=== PATIENT | female | born 1965 | race Caucasian/White ===

== ENCOUNTER 2024-04-16 13:59 | Outpatient (CLI) | payer OTHER, SELFPAY ==
--- NOTE | 2024-04-16 14:16 | ECG_ITS ---
SEE SCANNED COPY FOR CONFIRMED REPORT MTDD
[2024-04-16 14:21] LABS: Basophils Absolute Auto 0.07 K/mm3 (0.00-0.10); Basophils Percent Auto 1.3 % (0.0-1.0); Eosinophils Absolute Auto 0.19 K/mm3 (0.02-0.50); Eosinophils Percent Auto 3.6 % (1.0-6.0); Hematocrit 42.6 % (35.0-49.0); Hemoglobin 13.9 g/dL (12.0-15.0); Immature Granulocyte Absolute 0.02 K/mm3 (0.00-0.00); Immature Granulocyte Percent A 0.4 % (0.0-0.0); Lymphocytes Absolute Auto 1.82 K/mm3 (1.10-4.50); Lymphocytes Percent Auto 34.9 % (18.0-42.0); Mean Corpuscular HGB Conc 32.6 g/dL (32-36); Mean Corpuscular Hemoglobin 29.2 pg (27.0-31.0); Mean Corpuscular Volume 89.5 fL (78.0-102.0); Mean Platelet Volume 9.2 fl (9.2-11.8); Monocytes Absolute Auto 0.53 K/mm3 (0.10-0.90); Monocytes Percent Auto 10.2 % (2.0-11.0); Neutrophils Absolute Auto 2.58 K/mm3 (1.70-7.20); Neutrophils Percent Auto 49.6 % (50.0-70.0); Platelet Count Result 277 K/mm3 (150-420); Red Blood Count 4.76 M/mm3 (4.20-5.40); Red Cell Distribution Width 12.2 % (11.6-14.4); White Blood Count 5.2 K/mm3 (4.8-10.8)
[2024-04-16 14:33] LABS: Hemoglobin A1C 5.4 % (<5.7)
[2024-04-16 15:19] LABS: Alanine Aminotransferase 33 U/L (14-59); Albumin Level 3.8 g/dL (3.4-5.0); Alkaline Phosphatase 107 U/L (46-116); Anion Gap 8 mmol/L (4-12); Aspartate Amino Transferase 21 U/L (15-37); Bilirubin,Total 0.2 mg/dL (0.00-1.00); Blood Urea Nitrogen 7 mg/dL (7-18); Calcium 9.5 mg/dL (8.5-10.1); Carbon Dioxide 29 mmol/L (21-32); Chloride 97 mmol/L (98-108); Cholesterol 220 mg/dL (0-200); Estimated Glomerular Filt Rate > 60; Glucose 97 mg/dL (70-99); HDL Direct 53 mg/dL (40-60); LDL Cholesterol Calculated 99 mg/dL (<130); Osmolality Calculated 276 mOsm/kg (285-295); Potassium 4.3 mmol/L (3.5-5.1); Sodium 134 mmol/L (136-145); Thyroid Stimulating Hormone 4.46 uIU/mL (0.36-3.74); Total Protein 7.1 g/dL (6.4-8.2); Triglycerides 339 mg/dL (0-150)
[2024-04-16 15:26] LABS: Vitamin B12 > 2000 pg/mL (193-986)
[2024-04-18 06:03] LABS: Vitamin D 25 Hydroxy 92 ng/mL (30-100)
== END 2024-04-16 14:00 | disposition home or self-care (01) ==
LOC: CHSLAB 14:02
PROVIDERS: PCP Nurse Practitioner Family; Visit Provider Nurse Practitioner Family
DX: Z00.00 Encounter for general adult medical examination without abnormal findings (principal); Z78.9 Other specified health status; I49.9 Cardiac arrhythmia, unspecified; Z68.35 Body mass index [BMI] 35.0-35.9, adult
CPT/HCPCS: 36415; 80053; 80061; 82306; 82607; 83036; 84443; 85025; 93005

== ENCOUNTER 2024-05-17 07:42 | Outpatient (CLI) | payer OTHER, SELFPAY ==
--- NOTE | 2024-05-17 07:46 | EST_ITS ---
Patient Info Name: ANDERSON KOO Age: 59 years : 1965 Gender: Female Ht: 61 in Wt: 185 lbs BSA: 1.94 m2 HR: 88 bpm BP: 102 / 58 mmHg Heart Rhythm: IVCD Technical Quality: Good Exam Date: 05/17/2024 8:43 AM Exam Location: Echo Lab Patient Status: Outpatient Admit Date: 05/17/2024 Staff Ordering Physician: Nusrat Gray APRN Attending Provider: Nusrat Gray APRN Exam Type: CA stress maurice w NM Study Info A regadenoson stress test was performed. Summary 1. 1. Inconclusive lexiscan stress test for ischemic ST change by ECG criteria due to baseline LBBB. 2. 2. Stable hemodynamics throughout the test. 3. 3. Nuclear scan to follow and will be reported separately. Please correlate with it. Protocol: LEXISCAN Stress ECG Details Stage: REST Duration (min): 22 min : 20 sec HR (bpm): 88 SBP (mmHg): 102 DBP (mmHg): 58 Stage: REST Duration (min): 29 min : 50 sec HR (bpm): 81 SBP (mmHg): 102 DBP (mmHg): 58 Stage: STAGE 1 Duration (min): 0 min : 24 sec HR (bpm): 81 SBP (mmHg): 102 DBP (mmHg): 58 Stage: RECOVERY Duration (min): 0 min : 35 sec HR (bpm): 91 SBP (mmHg): 102 DBP (mmHg): 58 Stage: RECOVERY Duration (min): 1 min : 35 sec HR (bpm): 96 SBP (mmHg): 102 DBP (mmHg): 58 Stage: RECOVERY Duration (min): 2 min : 35 sec HR (bpm): 92 SBP (mmHg): 94 DBP (mmHg): 67 Stage: RECOVERY Duration (min): 3 min : 35 sec HR (bpm): 95 SBP (mmHg): 105 DBP (mmHg): 66 Stage: RECOVERY Duration (min): 4 min : 19 sec HR (bpm): 91 SBP (mmHg): 105 DBP (mmHg): 66 Rest HR: 81 bpm Peak HR: 99 bpm Rest Sys BP: 102 mmHg Peak Sys BP: 105 mmHg Max Pred HR: 161 bpm % Max Pred HR: 61 % Target HR: 137 bpm Max RPP: 10,395 bpm*mmHg BP Response: Normal blood pressure response Termination Reason: Completed Protocol Cardiac Symptoms: None Total Time: 0 min : 24 sec Rest White BP: 58 mmHg Peak White BP: 66 mmHg Total Dose: 0.4 mg Resting ECG Sinus rhythm with IVCD/left bundle branch block. Stress ECG No abnormal ST/T wave changes. Arrhythmias No arrhythmias were observed during the examination. Report Signatures
--- NOTE | 2024-05-17 13:29 | WPDCARIOSTRE ---
Nuclear Stress Test INDICATIONS Indications: LBBB PROCEDURE Procedure Performed: Myocardial Perf Spect-Multi Procedure: Patient underwent a lexiscan stress test and immediately was injected with 32.8 mCi of cardiolyte. Multiple tomographic images are obtained. These are of good quality. There is a large size, severe anterior, septal, and apical perfusion defects with stress imaging. A separate resting images were obtained after patient was injected with 10.6 mCi of cardiolyte. Multiple tomographic images are obtained. These are of good quality. There is a large size, severe anterior, septal, and apical perfusion defects with rest imaging. CONCLUSION Conclusion: 1. Myocardial perfusion imaging demonstrating a fixed large size anterior, septal and apical perfusion defects suggestive of scar. 2. No evidence of reversible ischemia. 3. Left ventriculogram demonstrates septal and apical hypokinesis with measured ejection fraction of 51%. 4. TID score 1.23 is borderline abnormal which cannot r/o left main or triple vessel disease.
== END 2024-05-17 07:43 | disposition home or self-care (01) ==
LOC: CHSIMG 07:43
PROVIDERS: PCP Nurse Practitioner Family; Visit Provider Nurse Practitioner Family
DX: I49.9 Cardiac arrhythmia, unspecified (principal); I44.7 Left bundle-branch block, unspecified
CPT/HCPCS: 78452; 93017; A9502; J2785

== ENCOUNTER 2024-06-10 15:41 | Outpatient (CLI) | payer OTHER, SELFPAY ==
--- NOTE | ~2024-06-10 | CT_ITS ---
CT Scan of the Chest without Contrast: Clinical Indication: Lung cancer screening, nicotine dependence Technique: Contiguous sections were acquired throughout the chest without intravenous contrast. Dose reduction technique was used on this scan by utilizing automated exposure control and iterative recon struction technique. The dose-length product (DLP) was 104.88 mGy-cm. Findings: There is no evidence of any significant mediastinal, hilar or axillary lymphadenopathy. The mediastin al soft tissues appear normal. There is no evidence of pleural or pericardial effusion. The lungs are clear. No pulmonary nodules or infiltrates are noted. Images through the upper abdomen reveal no abnormalities. Impression: Lung RADS 1: Negative. 12 month follow-up screening CT advised. Reviewed, dictated and finalized at location . Impression: Lung RADS 1: Negative. 12 month follow-up screening CT advised.
--- NOTE | 2024-06-10 15:44 | ECHO_ITS ---
Patient Info Name: ANDERSON KOO Age: 59 years : 1965 Gender: Female Ht: 61 in Wt: 185 lbs BSA: 1.94 m2 HR: 84 bpm BP: 132 / 87 mmHg Technical Quality: Fair Exam Date: 06/10/2024 4:04 PM Exam Location: [facility] Patient Status: Outpatient Admit Date: 06/10/2024 Staff Ordering Physician: Nusrat Gray APRN It Engineer: Warren Meyer RDCS Attending Provider: Nusrat Gray APRN Exam Type: CA echo doppler color flow Study Info Indications I49.9 - Cardiac arrhythmia, unspecified Complete two-dimensional, color flow and Doppler transthoracic echocardiogram is performed. Summary 1. Complete two-dimensional, color flow and Doppler transthoracic echocardiogram is performed. 2. Left ventricular chamber dimension is normal. 3. Left ventricular systolic function is normal, estimated at 55-60%. 4. Left ventricular septal wall motion is abnormal with septal motion related to bundle branch block. 5. The left ventricular diastolic function is grade I diastolic dysfunction. 6. E/e' 11 is mildly elevated. 7. No pulmonary hypertension, estimated pulmonary arterial systolic pressure is 14 mmHg. Left Ventricle E/e' 11 is mildly elevated. Left ventricular chamber dimension is normal. Left ventricular systolic function is normal, estimated at 55-60%. Left ventricular septal wall motion is abnormal with septal motion related to bundle branch block. The left ventricular diastolic function is grade I diastolic dysfunction. Right Ventricle Right ventricular systolic function is normal and with normal TAPSE 2.3 cm. Right ventricular chamber dimension is normal. Left Atria Left atrial chamber dimension is normal. Right Atria Right atrial chamber dimension is normal. Aortic Valve The aortic valve is trileaflet. There is no aortic valve stenosis. There is no aortic valve regurgitation. Pulmonic Valve There is no pulmonic regurgitation. Mitral Valve There is no mitral valve stenosis. There is no mitral valve regurgitation. Tricuspid Valve There is no tricuspid valve regurgitation. No pulmonary hypertension, estimated pulmonary arterial systolic pressure is 14 mmHg. Pericardium/Pleural There is no pericardial effusion. Inferior Vena Cava Normal inferior vena cava with >50% collapse upon inspiration consistent with normal right atrial pressure, 5 mmHg. Aorta The aortic root size at the sinus of Valsalva is normal. Left Ventricular Outflow Tract Name Value Normal LVOT 2D LVOT Diameter 1.8 cm LVOT Doppler LVOT Peak Velocity 97 cm/s LVOT Peak Gradient 4 mmHg LVOT Mean Gradient 2 mmHg LVOT VTI 18 cm LVOT VTI/AV VTI Ratio 0.9 LVOT Stroke Volume 49 ml Pulmonic Valve Name Value Normal PV Doppler PV Peak Velocity 89 cm/s PV Peak Gradient
== END 2024-06-10 15:42 | disposition home or self-care (01) ==
LOC: CHSIMG 15:41
PROVIDERS: PCP Nurse Practitioner Family; Visit Provider Nurse Practitioner Family
DX: I49.9 Cardiac arrhythmia, unspecified (principal); Z87.891 Personal history of nicotine dependence; I44.7 Left bundle-branch block, unspecified
CPT/HCPCS: 71271; 93306

== ENCOUNTER 2024-07-12 12:32 | Outpatient (CLI) | payer OTHER, SELFPAY ==
--- NOTE | ~2024-07-12 | XR_ITS ---
EXAM: XR shoulder LT min 2V DATE: 07/12/2024 13:09 HISTORY: Pain in arm radiates X 3-4 months, NKI . COMPARISON: None available. FINDINGS: Normal mineralization. No fracture or dislocation. No lytic or blastic lesion. Mild degene rative change at the AC joint and glenohumeral joint. Degenerative subchondral cysts in the superolat eral humeral head. Superior humeral head migration and several views. No erosion or periosteal change . Soft tissues within normal limits. IMPRESSION: Mild polyarticular left shoulder osteoarthritis. Likely rotator cuff pathology. Reviewed, dictated and finalized at location K. IMPRESSION: Mild polyarticular left shoulder osteoarthritis. Likely rotator cuf f pathology.
--- NOTE | ~2024-07-12 | XR_ITS ---
EXAM: [id number]_[id number]_[id number] DATE: 07/12/2024 13:10 HISTORY: Pain in arm radiates X 3-4 months, NKI . COMPARISON: None available. FINDINGS: Craniocervical association and atlantoaxial joint are aligned. No prevertebral soft tissue swelling. Vertebral bodies are aligned. Mild cervical straightening. Vertebral body heights are main tained. Normal disc spaces. Moderate degenerative change at the atlantodental interval. Multilevel mi ld disc space narrowing and moderate marginal osteophytosis. Multilevel moderate facet and uncoverteb ral joint hypertrophy. IMPRESSION: Multilevel moderate degenerative disc disease and facet/uncovertebral joint arthropathy. Reviewed, dictated and finalized at location K. IMPRESSION: Multilevel moderate degenerative disc disease and facet/uncovertebr al joint arthropathy.
[2024-07-12 13:52] LABS: Thyroid Stimulating Hormone 2.72 uIU/mL (0.36-3.74)
== END 2024-07-12 12:33 | disposition home or self-care (01) ==
PROVIDERS: PCP Nurse Practitioner Family; Visit Provider Nurse Practitioner Family
DX: E03.8 Other specified hypothyroidism (principal); M79.602 Pain in left arm; M50.30 Other cervical disc degeneration, unspecified cervical region; M19.012 Primary osteoarthritis, left shoulder
CPT/HCPCS: 36415; 72040; 73030; 84443

== ENCOUNTER 2024-07-23 13:54 | Outpatient (RCR) | payer OTHER, SELFPAY ==
--- NOTE | 2024-07-28 08:34 | BUOTOPEVAL ---
Assessment and note entered by Joan Martinez OT Evaluation Information Assessment Status Evaluation Diagnosis Pain in left arm Other ICD-10 Condition Codes ( Polyarthritis, unspecified OT) Onset 3 weeks Reported Pain Level Pain Score 0: Self Report Assessment OT Clinical Summary The patient is a 59 year old female who was referred to outpatient OT due to polyarthritis and pain in L arm. The patient previously had no pain and WNL UE strength that resulted in her ability to lift heavy items for ADLs and perform work tasks without discomfort. The patient now demonstrates significant pain in L UE reporting 7/ 10 at worst, scoring 25% on QuickDASH questionnaire, and demonstrates 4-/5 shoulder strength, 4/5 elbow strength that results in pain during MMT. The patient demonstrates moderate dysfunction of L UE that affects her ability to perform daily work tasks without discomfort. Therapist to educate patient on workplace ergonomics, UE HEP, address pain symptoms and improve strength within pain free range for increased independence with ADLs with minimal pain . Plan of Care Interventions Therapeutic Exercise,Manual Therapy,Neuro Re- education,Therapeutic Activities,Hot Pack/Cold Pack,Electrical Stimulation,Self-Care/Home Management,Ultrasound Treatment Frequency and 2x/week for 10 visits. Duration These treatments will address the objective and functional deficits as defined above. The patient will be advanced safely and appropriately in order for the patient to progress towards his/her prior level of function. Additional exercises will be introduced and as well as a comprehensive home exercise program upon discharge, if needed, ?to ensure carryover of functional gains achieved in the clinic. This treatment plan has been reviewed and agreement upon by the patient.
== END 2024-08-03 20:00 | disposition home or self-care (01) ==
LOC: CHSOT 13:54
PROVIDERS: Visit Provider Nurse Practitioner Family
DX: M79.602 Pain in left arm (principal); M13.0 Polyarthritis, unspecified
CPT/HCPCS: 97110; 97140; 97165

== ENCOUNTER 2024-12-23 07:10 | Emergency (ER) | payer OTHER, SELFPAY ==
--- NOTE | ~2024-12-23 | XR_ITS ---
XR elbow RT min 3V 12/23/2024 07:37 INDICATION: Elbow pain after fall PROCEDURE: 5 views right elbow. COMPARISON: No prior studies for comparison. FINDINGS: Fracture, dislocation or subluxation is not identified. Moderate soft tissue swelling overl jason the proximal radius and ulna seen on the lateral view. No foreign bodies are identified. IMPRESSION: 1: NO ACUTE BONE OR JOINT ABNORMALITY IDENTIFIED. Reviewed, dictated and finalized at location A. GER PAYER
--- NOTE | ~2024-12-23 | CT_ITS ---
EXAMINATION: CT cervical spine wo con DATE: 12/23/2024 07:29 INDICATION: Neck pain after trauma TECHNIQUE: Computed tomography (CT) of the cervical spine was performed without intravenous contrast. The dose-length product was 461 mGy-cm. Automated exposure control and iterative reconstruction tech nique were employed. COMPARISON: None FINDINGS: Reversal of cervical lordosis. Craniovertebral junction is normal. There is advanced multil evel spondylosis throughout the cervical spine characterized by disc narrowing and endplate hypertrop hy. No acute fracture or traumatic malalignment. No evidence for perched facet. Odontoid process is n ormal. No abnormality of the craniovertebral junction. No paraspinal or prevertebral soft tissue abno rmality. Lung apices are unremarkable. IMPRESSION: 1. No acute abnormality of the cervical spine. Reviewed, dictated and finalized at location A. F COINS INSPECTOR
--- NOTE | ~2024-12-23 | CT_ITS ---
EXAMINATION: CT BRAIN W/O DATE: 12/23/2024 07:29 INDICATION: Trauma to the head. TECHNIQUE: Computed tomography (CT) of the head was performed without intravenous contrast. The dose- length product was 605.33 mGy-cm. Automated exposure control and iterative reconstruction technique w ere employed. COMPARISON: No prior studies for comparison. FINDINGS: Normal brain parenchymal volume for age. Normal stone-white differentiation. No acute intrac ranial hemorrhage, infarction, mass or mass effect. There are scattered mild periventricular and subc ortical white matter changes, most likely related to small vessel ischemic disease (microangiopathy). No ventriculomegaly or midline shift. Midline sagittal images demonstrate a normal corpus callosum, c raniovertebral junction and sella turcica. Basilar cisterns are patent. Paranasal sinuses and mastoids are pneumatized. No depressed skull fractures. IMPRESSION: 1. No acute intracranial abnormality. Reviewed, dictated and finalized at location A. CLINICAL REVIEW
--- OUTSIDE RECORDS SUMMARY | 2024-12-23 07:12 | XMS_ITS ---
Author Organization [facility] [employer] [facility] Address [facility] [place] [address] Care Team Providers Care [employer] Product Consultant Name Role Phone Mimi, Gustabo Unavailable [phone] REASON FOR VISIT New Refill Request Medications Medication SIG (Take, Route, Frequency, Duration) Notes Start Date End Date Status Venlafaxine HCl ER 150 MG 2 capsule Oral once a day for 90 days Active Venlafaxine HCl ER 75 MG 1 capsule in th e morning Orally Once a day for 90 days Active Social History Sex Assigned At : Social History Observation Description Sex Assigned At Female Encounters Encounter Location Date Provider Diagnosis [facility] [facility] [address] [facility] [address] [place] [address] 12/15/2024 Gustabo Le Major depressive disorder, recurrent severe without psychotic features F33.2 Assessments Encounter Date Diagnosis (ICD Code) Assessment Notes Treatment Notes Treatment Clinical Notes Section Notes 12/15/2024 Major depressive disorder, recurrent severe without psychotic features (ICD-10 - F33.2) Plan Of Treatment Medication Medication Name Sig Start Date Stop Date Notes Venlafaxine HCl ER 150 MG 2 capsule Oral once a day for 90 days Venlafaxine HCl ER 75 MG 1 capsule in th e morning Orally Once a day for 90 days Next Appt Details Provider Name:Gustabo Le , 01/07/2025 03:45:00 PM, [address], [address], [place], [address], Progress Notes * ANDERSON KOO LDOB: [birth year] (59 yo F)Acc No.[id number]:12/15/2024 Patient:?ANDERSON KOO :1965???Age:59 Y???Sex:Female Address:[address] [address] * Refills? Refill Venlafaxine HCl ER Capsule Extended Release 24 Hour, 150 MG, Oral, 180 Capsule, 2 capsule, once a day, 90 days, Refills=1 Refill Venlafaxine HCl ER Capsule Extended Release 24 Hour, 75 MG, Orally, 90 Capsule, 1 capsule in the morning, Once a day, 90 days, Refills=1 * true * Date:? 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
--- OUTSIDE RECORDS SUMMARY | 2024-12-23 07:12 | XMS_ITS ---
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 Name Role Phone Gustabo Horowitz Unavailable [phone] Allergies No Known Allergies REASON FOR VISIT follow up Medications Medication SIG (Take, Route, Frequency, Duration) Notes Start Date End Date Status Venlafaxine HCl ER 150 MG 2 capsule Oral once a day for 90 days 03/31/2024 Active Venlafaxine HCl ER 75 MG 1 capsule in th e morning Orally Once a day for 90 days 06/10/2024 Active Venlafaxine HCl 75 MG Oral 03/31/2024 Active Levothyroxine Sodium 50 MCG Oral for 30 Days Active Social History Sex Assigned At : Social History Observation Description Sex Assigned At Female Problems Problem Type SNOMED Code ICD Code Onset Dates Problem Status W/U Status Risk Notes Problem Severe recurrent major depression without psychotic features (88755988) Major depressive disorder, recurrent severe without psychotic features (F33.2) Active confirmed Problem Generalized anxiety disorder (51057854) Generalized anxiety disorder (F41.1) Active confirmed Vital Signs Blood pressure systolic 119 mm Hg 04/30/20 24 Blood pressure diastolic 78 mm Hg 024 Heart Rate 102 /min 04/30/2024 Height 61.00 in 04/30/2024 Weight 189.0 lbs 04/30/2024 BMI 35.71 kg/m2 04/30/2024 Height-cm 154.94 cm 04/30/2024 Weight-kg 85.73 kg 04/30/2024 Encounters Encounter Location Date Provider Diagnosis [facility] [employer] [facility] [address] [place] [address] 04/30/2024 Gustabo Horowitz Major depressive disorder, recurrent severe without psychotic features F33.2 and Generalized anxiety disorder F41.1 Assessments Encounter Date Diagnosis (ICD Code) Assessment Notes Treatment Notes Treatment Clinical Notes Section Notes 04/30/2024 Major depressive disorder, recurrent severe without psychotic features (ICD-10 - F33.2) Hypothyroidism - Plan: - Continue Levothyroxine 50 mg daily for thyroid hormone replacement. Depression - Assessment: Patient reports discontinuation of Wellbutrin due to side effects (forgetfulness, absent-mindedness, headaches). - Plan: - Continue current regimen of Duloxetine 375 mg daily (Venlafaxine ER 150 mg, two capsules once daily, and Venlafaxine ER 75 mg, one capsule once daily). - Monitor patient's response to the current medication regimen and adjust as needed. Medication Refills - Assessment: Patient unsure about the need for refills. - Plan: - Advised the pharmacy to contact the provider if necessary. - Ensure the preferred storage and backup administrator (AUB) is specified for the generic Venlafaxine ER. Lifestyle Modification - Assessment: Patient reports improvement in mood after replacing sugar with honey in coffee. - Plan: - Encourage continuation of this dietary change and monitor for any further improvements in mood. Follow-up - Plan: - Schedule a follow-up appointment to assess the patient's response to the current medication regimen and make any necessary adjustments. 04/30/2024 Generalized anxiety disorder (ICD-10 - F41.1) Hypothyroidism - Plan: - Continue Levothyroxine 50 mg daily for thyroid hormone replacement. Depression - Assessment: Patient reports discontinuation of Wellbutrin due to side effects (forgetfulness, absent-mindedness, headaches). - Plan: - Continue current regimen of Duloxetine 375 mg daily (Venlafaxine ER 150 mg, two capsules once daily, and Venlafaxine ER 75 mg, one capsule once daily). - Monitor patient's response to the current medication regimen and adjust as needed. Medication Refills - Assessment: Patient unsure about the need for refills. - Plan: - Advised the pharmacy to contact the provider if necessary. - Ensure the preferred storage and backup administrator (AUB) is specified for the generic Venlafaxine ER. Lifestyle Modification - Assessment: Patient reports improvement in mood after replacing sugar with honey in coffee. - Plan: - Encourage continuation of this dietary change and monitor for any further improvements in mood. Follow-up - Plan: - Schedule a follow-up appointment to assess the patient's response to the current medication regimen and make any necessary adjustments. Plan Of Treatment Medication Medication Name Sig Start Date Stop Date Notes Venlafaxine HCl ER 150 MG 2 capsule Oral once a day for 90 days 03/31/2024 Venlafaxine HCl ER 75 MG 1 capsule in th e morning Orally Once a day for 90 days 06/10/2024 Next Appt Details Follow Up: 2 Months, Reason: Provider Name:Gustabo Horowitz , 01/07/2025 03:45:00 PM, [address], [facility] [address], [place], [address], Progress Notes * ANDERSON KOO LDOB: [birth year] (59 yo F)Acc No.[id number]:04/30/2024 Patient:?ANDERSON KOO Provider:?GUSTABO HOROWITZ MD :1965???Age:59 Y???Sex:Female D ate:04/30/2024 Address:[address] Subjective: * Chief Complaints: * ???Follow up * HPI: ???Depression screening:?PHQ-9?Little interest or pleasure in doing things?Not at all,?Feeling down, depressed, or hopeless?Not at all,?Trouble falling or staying asleep, or sleeping too much?Several days,?Feeling tired or having little energy?Not at all,?Poor appetite or overeating?Several days,?Feeling bad about yourself or that you are a failure, or have let yourself or your family down?Several days,?Trouble concentrating on things, such as reading the newspaper or watching television?Not at all,?Moving or speaking so slowly that other people could have noticed; or the opposite, being so fidgety or restless that you have been moving around a lot more than usual?Not at all,?Thoughts that you would be better off or of hurting yourself in some way?Not at all,?Total Score?3,?Interpretation?Minimal Depression.? Chief Complaint: The patient reports an overall positive state since the last visit, with no significant concerns or issues. She mentions that a previously discussed nasal spray was not initiated, as her condition has been stable without it. Medication History and Current Regimen: The patient had previously tried Wellbutrin but discontinued due to adverse effects such as forgetfulness, absent-mindedness, and headaches. Currently, she is taking a total of 375 milligrams of duloxetine, comprising two 150 mg capsules and one 75 mg capsule of venlafaxine. The patient is not taking Wellbutrin at this time and is uncertain about the need for refills. Dietary Changes and Potential Impact: The patient has made a dietary modification by replacing sugar with honey in her coffee, which she believes has contributed to an improvement in her mood. Inquiries and Concerns: The patient expresses curiosity about whether the brief period of taking Wellbutrin could have had a lasting effect on her brain's ability to produce serotonin. She is unsure if she requires a refill of the 75 mg venlafaxine capsules and suggests that the pharmacy can contact the provider if necessary. Additionally, the patient requests that the specific storage and backup administrator, A-U-B, be noted on her prescription, as she has had negative experiences with the Epic brand of generic medication. ???DAJA-7 Anxiety:?Over the last two weeks, how often have you been bothered by the following problems??1. Feeling nervous, anxious, or on edge?0 Not at all.? * Medical History:? * Surgical History:?Removal of gallbladder (81038) 11/24/2002 * Hospitalization/Major Diagno stic Procedure:?No Hospitalization History. * Family History:?Unspecified Relation: Bipolar disorder .?Father: No current problems or disability .?Mother: No current problems or disability .?Brother: Alcohol abuse .? * Social History:?Migrated Social History:?Migrated Social History: Alcohol Intake: None 04/06/2021,Tobacco Years: Current every day smoker 04/06/2021. * Medications:?TakingVenlafaxi ne HCl ER 150 MG Capsule Extended Release 24 Hour Oral Venlafaxine HCl 75 MG Tablet Oral Levothyroxine Sodium 50 MCG Tablet Oral Taking Venlafaxine HCl ER 150 MG Capsule Extended Release 24 Hour Oral Taking Venlafaxine HCl 75 MG Tablet Oral Taking Levothyroxine Sodium 50 MCG Tablet Oral DiscontinuedVenlafaxine HCl ER 150 MG Capsule Extended Release 24 Hour Oral Venlafaxine HCl ER 75 MG Capsule Extended Release 24 Hour Oral buPROPion HCl ER (XL) 300 MG Tablet Extended Release 24 Hour Oral buPROPion HCl ER (XL) 300 MG Tablet Extended Release 24 Hour TAKE 1 TABLET BY MOUTH EVERY DAY IN THE MORNING Oral buPROPion HCl ER (XL) 150 MG Tablet Extended Release 24 Hour TAKE 1 TABLET BY MOUTH EVERY DAY Oral buPROPion HCl ER (XL) 150 MG Tablet Extended Release 24 Hour Oral Amoxicillin-Pot Clavulanate 875-125 MG Tablet TAKE 1 TABLET BY MOUTH EVERY 12 HOURS WITH A MEAL UNTIL ALL TAKEN Oral Venlafaxine HCl ER 75 MG Capsule Extended Release 24 Hour Oral Carvedilol 6.25 MG Tablet Oral Medication List reviewed and reconciled with the patientDiscontinued Venlafaxine HCl ER 150 MG Capsule Extended Release 24 Hour Oral Discontinued Venlafaxine HCl ER 75 MG Capsule Extended Release 24 Hour Oral Discontinued buPROPion HCl ER (XL) 300 MG Tablet Extended Release 24 Hour Oral Discontinued buPROPion HCl ER (XL) 300 MG Tablet Extended Release 24 Hour TAKE 1 TABLET BY MOUTH EVERY DAY IN THE MORNING Oral Discontinued buPROPion HCl ER (XL) 150 MG Tablet Extended Release 24 Hour TAKE 1 TABLET BY MOUTH EVERY DAY Oral Discontinued buPROPion HCl ER (XL) 150 MG Tablet Extended Release 24 Hour Oral Discontinued Amoxicillin-Pot Clavulanate 875-125 MG Tablet TAKE 1 TABLET BY MOUTH EVERY 12 HOURS WITH A MEAL UNTIL ALL TAKEN Oral Discontinued Venlafaxine HCl ER 75 MG Capsule Extended Release 24 Hour Oral Discontinued Carvedilol 6.25 MG Tablet Oral Medication List reviewed and reconciled with the patient * Allergies:?N.K.D.A.no[Allerg ies Verified] Objective: * Vitals:?BP:119/78mm Hg, HR:1 02/min, Wt:189.0lbs, Wt-k.73 kg, Ht: 61.00 in, Ht-cm: 154.94 cm, BMI:35.71Index, Body Surface Area: 1.92. * Examination: ???Psychiatry: ?Appearance:?well-groomed.?Abnormal body movements:?none.?Affect / mood:?appropriate, full range.?Attention:?good.?Attitude:?cooperative.?Homicidal ideation:?none.?Suicidal ideation:?none.?Memory status:?did not assess.?Degree of awareness of surroundings:?within normal limits.?Delusions:?no.?Hallucinations:?no.?Impulse control:?not assessed.?Insight:?good.?Intellectual functioning:?average.?Calculation - Intellectual function:?not tested.?Literacy - Intellectual function:?not tested.?Comprehension - Intellectual function:?average.?Abstract / proverb - Intellectual function:?not tested.?Similarities / opposites - Intellectual function:?not tested.?Judgement:?not assessed.?Orientation:?awake, alert and oriented x 3.?Perceptual disorders:?no perceptual disorder noted.?Psychomotor activity:?within normal range.?Speech / language:?appropriate pitch/modulation.?Thought content:?appropriate.?Thought process:?intact.?Mini Mental Status Exam: ???Mental Status Examination: Patient reported feeling generally good. Described experiencing forgetfulness, absent-mindedness, and headaches while on Wellbutrin, which has since been discontinued. No current complaints of cognitive or mood disturbances were noted during this visit. Assessment: * Assessment: 1.?Major depressive disorder , recurrent severe without psychotic features - F33.2 (Primary)?2.?Generalized anxiety disorder - F41.1? Hypothyroidism - Plan: - Continue Levothyroxine 50 mg daily for thyroid hormone replacement. Depression - Assessment: Patient reports discontinuation of Wellbutrin due to side effects (forgetfulness, absent-mindedness, headaches). - Plan: - Continue current regimen of Duloxetine 375 mg daily (Venlafaxine ER 150 mg, two capsules once daily, and Venlafaxine ER 75 mg, one capsule once daily). - Monitor patient's response to the current medication regimen and adjust as needed. Medication Refills - Assessment: Patient unsure about the need for refills. - Plan: - Advised the pharmacy to contact the provider if necessary. - Ensure the preferred storage and backup administrator (AUB) is specified for the generic Venlafaxine ER. Lifestyle Modification - Assessment: Patient reports improvement in mood after replacing sugar with honey in coffee. - Plan: - Encourage continuation of this dietary change and monitor for any further improvements in mood. Follow-up - Plan: - Schedule a follow-up appointment to assess the patient's response to the current medication regimen and make any necessary adjustments. Plan: * Treatment: * Procedure Codes:? * Follow Up:?2 Months * Billing Information: * Visit Code:? 80764 OFFICE OUTPATIENT VISIT 25 MINUTES DETAILED HISTORY AND EXAM/MODERATE MEDICAL DECISION MAKING. * Procedure Codes:? 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 She mentions that a previously discussed nasal spray was not initiated, as her condition has been stable without it. Medication History and Current Regimen: The patient had previously tried Wellbutrin but discontinued due to adverse effects such as forgetfulness, absent-mindedness, and headaches. Currently, she is taking a total of 375 milligrams of duloxetine, comprising two 150 mg capsules and one 75 mg capsule of venlafaxine. The patient is not taking Wellbutrin at this time and is uncertain about the need for refills. Dietary Changes and Potential Impact: The patient has made a dietary modification by replacing sugar with honey in her coffee, which she believes has contributed to an improvement in her mood. Inquiries and Concerns: The patient expresses curiosity about whether the brief period of taking Wellbutrin could have had a lasting effect on her brain's ability to produce serotonin. She is unsure if she requires a refill of the 75 mg venlafaxine capsules and suggests that the pharmacy can contact the provider if necessary. Additionally, the patient requests that the specific storage and backup administrator, A-U-B, be noted on her prescription, as she has had negative experiences with the Epic brand of generic medication. Feeling down, depressed, or hopeless: No t at all Trouble falling or staying asleep, or sl eeping too much: Several days Feeling tired or having little energy: N ot at all Poor appetite or overeating: Several day s Feeling bad about yourself o r that you are a failure, or have let yourself or your family down: Several days Trouble concentrating on thi ngs, such as reading the newspaper or watching television: Not at all Moving or speaking so slowly that other people could have noticed; or the opposite, being so fidgety or restless that you have been moving around a lot more than usual: Not at all Thoughts that you would be b sergio off or of hurting yourself in some way: Not at all Total Score: 3 Interpretation: Minimal Depression DAJA-7 Anxiety Over the last two we eks, how often have you been bothered by the following problems? 1. Feeling nervous, anxious, or on edge: 0 Not at all Examination Category Sub-Category Detail Notes Category Not es Mini Mental Status Exam Mental Status Examination: Patient reported feeling generally good. Described experiencing forgetfulness, absent-mindedness, and headaches while on Wellbutrin, which has since been discontinued. No current complaints of cognitive or mood disturbances were noted during this visit. Psychiatry Appearance: well-groomed Attitude: cooperative Psychomotor activity: within normal rang e Abnormal body movements: none Attention: good Degree of awareness of surroundings: wit hin normal limits Orientation: awake, alert and natanael ented x 3 Affect / mood: appropriate, full ra nge Speech / language: appropriate pitch/mo dulation Insight: good Judgement: not assessed Thought process: intact Thought content: appropriate Perceptual disorders: no perceptual diso rder noted Suicidal ideation: none Homicidal ideation: none Intellectual functioning: average Impulse control: not assessed Memory status: did not assess Delusions: no Hallucinations: no Calculation - Intellectual function: not tested Literacy - Intellectual function: not te sted Comprehension - Intellectual function: a verage Abstract / proverb - Intellectual functi on: not tested Similarities / opposites - Intellectual function: not tested
--- OUTSIDE RECORDS SUMMARY | 2024-12-23 07:12 | XMS_ITS | Clinical Summary ---
Author Organization [facility] Address [address] [place] [address]. [place], [place] [address] [place] [address] Care Team Providers Care Associate Professor Of Philosophy Name Role Phone Carlitos Posey MD Unavailable Boogie Nuñez DO Primary Care Provider [phone] Allergies No known active allergies Medications venlafaxine 24 hr (EFFEXOR XR) 37.5 MG 24 hr capsule Take 75 mg by mouth daily. 05/02/2015 Active Llano-3 Fatty Acids (FISH OIL) 1200 MG Cap Take 1 tablet by mouth daily. 04/26/2014 Active Multiple Vitamins-Minera ls (CENTURY-LUTEIN OR) Take 1 tablet by mouth daily. 04/26/2014 Active B Complex Vitamins (VITAMIN B COMPLEX OR) Take 1 tablet by mouth daily. 03/18/2013 Active Ascorbic Acid (VITAMIN C) 500 MG Chew Tab take as directed 03/22/2013 Active Cholecalciferol (VITAMIN D-3) 1000 UNITS Cap Take 1 tablet by mouth daily. take 1 tablet by mouth once a day 03/18/2013 Active mirtazapine 30 MG tablet Take 1 tablet by mouth daily. 5 05/14/2016 Active carvedilol 12.5 MG tablet Take 1 tablet (12.5 mg total) by mouth 2 (two) times daily. 180 tablet 3 05/20/2016 Active venlafaxine XR 150 MG 24 hr capsule TK 2 CS PO QD UTD 11/04/2019 Active azithromycin 250 MG tablet Take 2 tablets by mouth on day one then 1 daily for four days. 6 tablet 11/19/2019 Active Active Problems Problem Noted Date Diagnosed Date Alcoholic cardiomyopathy (CMS/HCC HHS/HCC) LBBB (left bundle branch block) Overview (05/17/2016): chronic Hypertension Tobacco abuse Immunizations Name Administration Dates Next Due PFIZER COVID-19 (ORIGINAL FO RMULATION, PURPLE CAP) mRNA, LNP-S, PF, 30 MCG/0.3 ML DOSE 03/21/2021,02/28/2021 Family History Medical History Relation Comments None Mother Heart Disease Neg Hx Relation Status Comments Father Mother Alive Social History Tobacco Use Types Packs/Day Years Used Date Smoking Tobacco: Every Day Cigarettes Smokeless Tobacco: Never Alcohol Use Standard Drinks/Week Comments No 0 (1 standard drink = 0.6 oz pur e alcohol) AUDIT-C Answer Date Recorded Frequency of Alcohol Consumption Never 11/19/2019 Average Number of Drinks Not on file 019 Frequency of Binge Drinking Not on file 10/25 Comments No Sex and Gender Information Value Date Recorded Sex Assigned at Female 04/08/2024 1:10 PM CDT Legal Sex Female 10:26 PM CDT Gender Identity Female 04/08/2024 1:10 PM CDT Sexual Orientation Straight 04/08/2024 1: 10 PM CDT Occupation Industry Job Start Date Job End Date She works at the [employer] in the [employer] department Not on file Not on file Not on file Last Filed Vital Signs Vital Sign Reading Time Taken Comments Blood Pressure 123/69 11/19/2019 9:17 AM AIR QUALITY ENGINEER Pulse 86 11/19/2019 9:17 AM AIR QUALITY ENGINEER Temperature 36.2 ??C (97.1 ??F) 11/19/2019 9:17 AM CS T Respiratory Rate 20 11/19/2019 9:17 AM AIR QUALITY ENGINEER Oxygen Saturation 96% 11/19/2019 9:18 AM AIR QUALITY ENGINEER Inhaled Oxygen Concentration - - Weight 88.5 kg (195 lb) 11/19/2019 9:17 AM AIR QUALITY ENGINEER Height 154.9 cm (5' 1 ) 11/19/2019 9:17 AM AIR QUALITY ENGINEER Body Mass Index 36.84 11/19/2019 9:17 AM AIR QUALITY ENGINEER Plan of Treatment Health Maintenance Due Date Last Done Comments Cervical Cancer Screening Pa p Smear (Age 30 to 64) Every 3 Years 1965 Colorectal Cancer Screening Colonoscopy (10 Years) 1965 Annual Physical 1968 Pneumococcal Vaccine: Pediatrics (0 to 5 Years) and At-Risk Patients (6 to 64 Years) (1 of 2 - PCV) 1971 Hepatitis C 1983 DTaP, Tdap and Td Vaccines ( 1 - Tdap) 1984 Cervical Cancer Screening Pa p with HPV Testing (Age 30 to 64) Every 5 Years 1995 Cervical Cancer Screening wi th HPV 1995 Mammogram Screening 2005 Zoster Vaccines (1 of 2) 2015 COVID-19 Vaccine (3 - 2023-2 5 season) 2024 03/21/2021, 02/28/2021 Influenza Adult (#1) 2024 Meningococcal B Vaccine Aged Out No l onger eligible based on patient's age to complete this topic Meningococcal Vaccine Aged Out No sanide casey eligible based on patient's age to complete this topic RSV Immunizations Under 20 Months Aged Out No longer eligible b ased on patient's age to complete this topic Insurance MEDICAID [employer] [facility] Care Teams Associate Professor Of Philosophy Relationship Specialty Start Date End Date Boogie Nuñez DO [address] [place], [place] [address] PCP - General FAMILY PRACTICE 12/23/20 Carlitos Posey MD [address] [place], [place] [address] [place] Social Work Administrator CARDIOVASCULAR DISEASE 05/15/16
--- OUTSIDE RECORDS SUMMARY | 2024-12-23 07:13 | XMS_ITS ---
Author Organization [facility] Address [address] [place] [address] Care Team Providers Care Licensed Vocational Nurse Name Role Phone MimiElie levinjay Unavailable [phone] Allergies No Known Allergies REASON FOR VISIT follow up visit, medication evaluation Medications Medication SIG (Take, Route, Frequency, Duration) Notes Start Date End Date Status Venlafaxine HCl ER 75 MG 1 capsule in e morning Orally Once a day for 90 days Active Levothyroxine Sodium 50 MCG Oral for 30 Days Active Venlafaxine HCl ER 150 MG 2 capsule Oral once a day for 90 days Active Social History Sex Assigned At : Social History Observation Description Sex Assigned At Female Vital Signs Blood pressure systolic 119 mm Hg 07/02/20 24 Blood pressure diastolic 81 mm Hg 024 Heart Rate 85 /min 07/02/2024 Height 61.00 in 07/02/2024 Weight 188.0 lbs 07/02/2024 BMI 35.52 kg/m2 07/02/2024 Height-cm 154.94 cm 07/02/2024 Weight-kg 85.28 kg 07/02/2024 Encounters Encounter Location Date Provider Diagnosis [facility] [address] [place] [address] 07/02/2024 Gustabo Horowitz Major depressive disorder, recurrent severe without psychotic features F33.2 ; Generalized anxiety disorder F41.1 ; Hypertension I10 and Alcoholic cardiomyopathy (CMS/HCC HHS/HCC) I42.6 Assessments Encounter Date Diagnosis (ICD Code) Assessment Notes Treatment Notes Treatment Clinical Notes Section Notes 07/02/2024 Major depressive disorder, recurrent severe without psychotic features (ICD-10 - F33.2) Depression and Anxiety - Assessment: Patient reports no current symptoms of depression or anxiety. PHQ-9 score is back to zero. Patient has been tolerating the current medication regimen well and reports feeling good since January or February. - Plan: - Continue the current medication regimen without changes. - Schedule a follow-up appointment in six months. - Provide a one-month cushion for medication refills. Fatigue - Assessment: Patient reports occasional fatigue, but not significant. Patient mentioned stopping a metabolism-holguin sting supplement that had lowered their mood. - Plan: - Continue to monitor fatigue levels during follow-up appointments. - No changes to the current treatment plan at this time. Medication Management - Assessment: Patient has one month of medication remaining and is due for a refill. Patient is on a high dose of medication, making it important to avoid running out due to potential withdrawal. - Plan: - Refill the current medication for 90 days with an additional refill, providing a total of seven months of medication supply. - Schedule a follow-up appointment in six months to reassess the patient's condition and medication needs. - Emphasized the importance of maintaining a one-month cushion of medication supply. 07/02/2024 Generalized anxiety disorder (ICD-10 - F41.1) Depression and Anxiety - Assessment: Patient reports no current symptoms of depression or anxiety. PHQ-9 score is back to zero. Patient has been tolerating the current medication regimen well and reports feeling good since January or February. - Plan: - Continue the current medication regimen without changes. - Schedule a follow-up appointment in six months. - Provide a one-month cushion for medication refills. Fatigue - Assessment: Patient reports occasional fatigue, but not significant. Patient mentioned stopping a metabolism-holguin sting supplement that had lowered their mood. - Plan: - Continue to monitor fatigue levels during follow-up appointments. - No changes to the current treatment plan at this time. Medication Management - Assessment: Patient has one month of medication remaining and is due for a refill. Patient is on a high dose of medication, making it important to avoid running out due to potential withdrawal. - Plan: - Refill the current medication for 90 days with an additional refill, providing a total of seven months of medication supply. - Schedule a follow-up appointment in six months to reassess the patient's condition and medication needs. - Emphasized the importance of maintaining a one-month cushion of medication supply. 07/02/2024 Hypertension (ICD-10 - I10) Depression and Anxiety - Assessment: Patient reports no current symptoms of depression or anxiety. PHQ-9 score is back to zero. Patient has been tolerating the current medication regimen well and reports feeling good since January or February. - Plan: - Continue the current medication regimen without changes. - Schedule a follow-up appointment in six months. - Provide a one-month cushion for medication refills. Fatigue - Assessment: Patient reports occasional fatigue, but not significant. Patient mentioned stopping a metabolism-holguin sting supplement that had lowered their mood. - Plan: - Continue to monitor fatigue levels during follow-up appointments. - No changes to the current treatment plan at this time. Medication Management - Assessment: Patient has one month of medication remaining and is due for a refill. Patient is on a high dose of medication, making it important to avoid running out due to potential withdrawal. - Plan: - Refill the current medication for 90 days with an additional refill, providing a total of seven months of medication supply. - Schedule a follow-up appointment in six months to reassess the patient's condition and medication needs. - Emphasized the importance of maintaining a one-month cushion of medication supply. 07/02/2024 Alcoholic cardiomyopathy ([facility]) (ICD-10 - I42.6) Depression and Anxiety - Assessment: Patient reports no current symptoms of depression or anxiety. PHQ-9 score is back to zero. Patient has been tolerating the current medication regimen well and reports feeling good since January or February. - Plan: - Continue the current medication regimen without changes. - Schedule a follow-up appointment in six months. - Provide a one-month cushion for medication refills. Fatigue - Assessment: Patient reports occasional fatigue, but not significant. Patient mentioned stopping a metabolism-holguin sting supplement that had lowered their mood. - Plan: - Continue to monitor fatigue levels during follow-up appointments. - No changes to the current treatment plan at this time. Medication Management - Assessment: Patient has one month of medication remaining and is due for a refill. Patient is on a high dose of medication, making it important to avoid running out due to potential withdrawal. - Plan: - Refill the current medication for 90 days with an additional refill, providing a total of seven months of medication supply. - Schedule a follow-up appointment in six months to reassess the patient's condition and medication needs. - Emphasized the importance of maintaining a one-month cushion of medication supply. Plan Of Treatment Medication Medication Name Sig Start Date Stop Date Notes Venlafaxine HCl ER 75 MG 1 capsule in th e morning Orally Once a day for 90 days Venlafaxine HCl ER 150 MG 2 capsule Oral once a day for 90 days Next Appt Details Follow Up: 6 Months, Reason: Follow up Depression Provider Name:Gustabo Horowitz , 01/07/2025 03:45:00 PM, [address], [facility] [address], [place], [address], Progress Notes * ANDERSON KOO LDOB: [birth year] (59 yo F)Acc No.[id number]:07/02/2024 Patient:?ANDERSON KOO Provider:?GUSTABO HOROWITZ MD :1965???Age:59 Y???Sex:Female D ate:07/02/2024 Address:[address] Subjective: * Chief Complaints: * ???Follow up visit, medicati on evaluation * HPI: ???Depression screening:? Chief Complaint: The patient reports feeling good overall, with no current depression or anxiety. She mentions that her mood has been fairly stable since the beginning of January or February. Medication and Symptoms: The patient briefly tried a new medication to boost her metabolism but discontinued it due to a negative impact on her mood. She is currently tolerating her existing medication well, with no significant side effects reported. The patient has not experienced any significant tiredness or fatigue recently, only occasionally and nothing significant. She expresses a desire to keep her current medication regimen unchanged, stating, I would like to keep things the way they are. Mood Assessment: The patient's PHQ-9 score is back to zero, indicating an improvement in her depressive symptoms. Follow-Up Appointment: The patient agrees to a six-month follow-up appointment, with the provider ensuring she has a one-month cushion of medication to prevent withdrawal. The note is transcribed using speech recognition software. It is a reflection of a visit with the patient. It might have some inaccuracy, including medication names and transcribing errors, though efforts have been made to correct them. ?PHQ-9?Little interest or pleasure in doing things?Not at all,?Feeling down, depressed, or hopeless?Not at all,?Trouble falling or staying asleep, or sleeping too much?Not at all,?Feeling tired or having little energy?Not at all,?Poor appetite or overeating?Not at all,?Feeling bad about yourself or that you are a failure, or have let yourself or your family down?Not at all,?Trouble concentrating on things, such as reading the newspaper or watching television?Not at all,?Moving or speaking so slowly that other people could have noticed; or the opposite, being so fidgety or restless that you have been moving around a lot more than usual?Not at all,?Thoughts that you would be better off or of hurting yourself in some way?Not at all,?Total Score?0.?Intervention?Depression Screening Findings?Negative,?Follow-Up for Depression?Mental health care management,?Suicide Risk Assessment Performed? ,?Additional Evaluation for Depression?Psychiatric interview and evaluation,?Name of the standardized tool used for adult depression screening:?Patient Health Questionnaire (PHQ-9).?Depression Screening:?DAJA-7 (2018 Edition)?Feeling nervous, anxious, or on edge?Not at all,?Not being able to stop or control worrying?Not at all,?Worrying too much about different things?Not at all,?Trouble relaxing?Not at all,?Being so restless that it is hard to sit still?Not at all,?Becoming easily annoyed or irritable?Several days,?Feeling afraid as if something awful might happen?Not at all,?If you checked any problems, how difficult have they made it for you to do your work, take care of things at home, or get along with other people??Not difficult at all.?S[place]-Suicide Severity Rating Scale:?Suicide Risk (CSRS-screener)?in the past one month Have you wished you were or wished you could go to sleep and not wake up??No,?in the past one month Have you actually had any thoughts of killing yourself??No.? * Medical History:? * Surgical History:? * Hospitalization/Major Diagno stic Procedure:? * Medications:?TakingLevothyro xine Sodium 50 MCG Tablet Oral Venlafaxine HCl ER 150 MG Capsule Extended Release 24 Hour 2 capsule Oral once a day Venlafaxine HCl ER 75 MG Capsule Extended Release 24 Hour 1 capsule in the morning Orally Once a day Medication List reviewed and reconciled with the patientTaking Levothyroxine Sodium 50 MCG Tablet Oral Taking Venlafaxine HCl ER 150 MG Capsule Extended Release 24 Hour 2 capsule Oral once a day Taking Venlafaxine HCl ER 75 MG Capsule Extended Release 24 Hour 1 capsule in the morning Orally Once a day Medication List reviewed and reconciled with the patient * Allergies:?N.K.D.A.no[Allerg ies Verified] Objective: * Vitals:?BP:119/81mm Hg, HR:8 5/min, Wt:188.0lbs, Wt-k.28 kg, Ht: 61.00 in, Ht-cm: 154.94 cm, BMI:35.52Index, Body Surface Area: 1.91. * Examination: ???General Examination: ?General appearance:?pale.?Head:?normocephalic, atraumatic.?Eyes:?pupils equal, round, reactive to light and accommodation.?Ears:?normal.?Throat:?clear.?Mental Status Examination: Patient reports no current symptoms of depression or anxiety. Patient expresses a fear of jinxing her current state of well-being by discussing it. Patient's PHQ-9 score is reported to be zero, indicating no depressive symptoms at this time. Patient reports feeling good since January or February. Patient mentions noticing a lowered mood when trying a new metabolism-boosting supplement, which she subsequently stopped taking. Diagnostic Test Results: PHQ-9 score reported as zero during this visit. No other diagnostic tests or lab results mentioned. Medications: Patient is currently on a high dose of medication (specific medication not mentioned). Patient has about 30 days of medication remaining at home. Decision made to continue current medication regimen for six more months, with a one- month cushion provided. Assessment: * Assessment: 1.?Major depressive disorder , recurrent severe without psychotic features - F33.2 (Primary)???2.?Generalized anxiety disorder - F41.1???3.?Hypertension - I10???4.?Alcoholic cardiomyopathy ([facility]) - I42.6??? Depression and Anxiety - Assessment: Patient reports no current symptoms of depression or anxiety. PHQ- 9 score is back to zero. Patient has been tolerating the current medication regimen well and reports feeling good since January or February. - Plan: - Continue the current medication regimen without changes. - Schedule a follow-up appointment in six months. - Provide a one-month cushion for medication refills. Fatigue - Assessment: Patient reports occasional fatigue, but not significant. Patient mentioned stopping a metabolism-boosting supplement that had lowered their mood. - Plan: - Continue to monitor fatigue levels during follow-up appointments. - No changes to the current treatment plan at this time. Medication Management - Assessment: Patient has one month of medication remaining and is due for a refill. Patient is on a high dose of medication, making it important to avoid running out due to potential withdrawal. - Plan: - Refill the current medication for 90 days with an additional refill, providing a total of seven months of medication supply. - Schedule a follow-up appointment in six months to reassess the patient's condition and medication needs. - Emphasized the importance of maintaining a one-month cushion of medication supply. Plan: * Treatment: * Procedure Codes:?64388 BEHAV ASSMT W/SCORE & DOCD/STAND INSTRUMENT * Follow Up:?6 Months (Reason: Follow up Depression) * Billing Information: * Visit Code:? 82287 OFFICE OUTPATIENT VISIT 25 MINUTES DETAILED HISTORY AND EXAM/MODERATE MEDICAL DECISION MAKING. * Procedure Codes:? 28127 BEHAV ASSMT W/SCORE & DOCD/STAND INSTRUMENT. * Sign off status: Completed true * Provider:?GUSTABO HOROWITZ MD Date:?07/02 Generated for Constantino adams/Faxing/eTransmitting on:?12/23/2024 07:12 AM PACKING AND WRAPPING SUPERVISOR History and Physical Notes * HPI (History of Present Illness) Category Sub-Category Detail Notes Category Not es Depression screening PHQ-9 Little inte rest or pleasure in doing things: Not at all Feeling down, depressed, or hopeless: No t at all Trouble falling or staying asleep, or sl eeping too much: Not at all Feeling tired or having little energy: N ot at all Poor appetite or overeating: Not at all Feeling bad about yourself o r that you are a failure, or have let yourself or your family down: Not at all Trouble concentrating on thi ngs, such as [...] some way: Not at all Total Score: 0 Intervention Depression Screening Findings: N egative Follow-Up for Depression: Mental health care management Suicide Risk Assessment Performed: ____ Additional Evaluation for Depression: Ps ychiatric interview and evaluation Name of the standardized too l used for adult depression screening:: Patient Health Questionnaire (PHQ-9) Depression Screening DAJA-7 (2018 Edition) Feelin g nervous, anxious, or on edge: Not at all Not being able to stop or control worryi ng: Not at all Worrying too much about different things : Not at all Trouble relaxing: Not at all Being so restless that it is hard to sit still: Not at all Becoming easily annoyed or irritable: days Feeling afraid as if something awful zeb ht happen: Not at all If you checked any problems, how difficult have they made it for you to do your work, take care of things at home, or get along with other people?: Not difficult at all [place]-Suicide Severity Rating Scale Suicide Risk (CSRS-screener) in the past one month Have you wished you were or wished you could go to sleep and not wake up?: No in the past one month Have y ou actually had any thoughts of killing yourself?: No Examination Category Sub-Category Detail Notes Category Not es General Examination General appearance: pale Mental Status Examination: Patient reports no current symptoms of depression or anxiety. Patient expresses a fear of jinxing her current state of well-being by discussing it. Patient's PHQ-9 score is reported to be zero, indicating no depressive symptoms at this time. Patient reports feeling good since January or February. Patient mentions noticing a lowered mood when trying a new metabolism-boosting supplement, which she subsequently stopped taking. Diagnostic Test Results: PHQ-9 score reported as zero during this visit. No other diagnostic tests or lab results mentioned. Medications: Patient is currently on a high dose of medication (specific medication not mentioned). Patient has about 30 days of medication remaining at home. Decision made to continue current medication regimen for six more months, with a one-month cushion provided. Head: normocephalic, atrau matic Eyes: pupils equal, round, reactive to light and accommodation Ears: normal Throat: clear
--- OUTSIDE RECORDS SUMMARY | 2024-12-23 07:13 | XMS_ITS | Patient Health Summary ---
Author Organization [facility] Address [address] [place] [address] Care Team Providers Care Printing Film Stripper Name Role Phone Charlie Albert MD Primary Care Provider [phone] Note from [facility],non-owned Affiliates and Associated Physician Practices is amultiple site organization consisting of ambulatory clinics and hospital sitesin [place], [place], [place] and [place]. This disclosure is being madepursuant to the Care Everywhere program and may not contain all information available regarding this patient. Last updated 18.[facility] Allergies No known active allergies Immunizations * TDAP (7yrs+)(Given 12/02/2019) Social History Tobacco Use Types Packs/Day Years Used Date Smoking Tobacco: Never Assessed Sex and Gender Information Value Date Recorded Sex Assigned at Not on file Gender Identity Not on file Sexual Orientation Not on file Procedures * SKIN TEST PPD - POINT OF CARE(Performed 12/02/2019) Performed for PPD screening test Results * SKIN TEST PPD - POINT OF CARE (12/02/2019 9:30 AM MEAT GRADING MACHINE OPERATOR) PPD 0mm-negative ; placed 12/02 at 0930; read 12/04 at 0930 Other MISCELLANEOUS SAMPLE S / Unknown 12/02/2019 9:30 AM MEAT GRADING MACHINE OPERATOR lElie Arguello ADAPTIVE PHYSICAL EDUCATOR-NETWORK APPLICATIONS SPECIALIST LAB - POINT OF CARE ORDERABLES Care Teams Printing Film Stripper Relationship Specialty Start Date [place] [id number] [place] [address] PCP - General 10/16/09
--- OUTSIDE RECORDS SUMMARY | 2024-12-23 07:13 | XMS_ITS | Clinical Summary ---
Author Organization [facility] Address [address] [place] [address] Care Team Providers Care Radiation Physicist Name Role Phone Charlie Albert MD Primary Care Provider [phone] Source Comments [facility],non-owned Affiliates and Associated Physician Practices is amultiple site organization consisting of ambulatory clinics and hospital sitesin [place], [place], [place] and [place]. This disclosure is being madepursuant to the Care Everywhere program and may not contain all information available regarding this patient. Last updated 18.[facility] Allergies No known active allergies Immunizations Name Administration Dates Next Due TDAP (7yrs+) 12/02/2019 Social History Tobacco Use Types Packs/Day Years Used Date Smoking Tobacco: Never Assessed Sex and Gender Information Value Date Recorded Sex Assigned at Not on file Gender Identity Not on file Sexual Orientation Not on file Plan of Treatment Health Maintenance Due Date Last Done Comments COLOGUARD (AGES 45-75) - COL ON CA SCREENING 1965 COLON MONITORING 1965 COLONOSCOPY - COLON CA SCREENING 1965 CT COLONOGRAPHY - COLON CA SCREENING 1965 Colorectal Cancer Screening 1965 FIT - COLON CA SCREENING 1965 FLEX SIG - COLON CA SCREENING 1965 LIPID TESTING 1965 MAMMOGRAM 1965 PAP SMEAR 1965 HIV SCREENING 1980 HEPATITIS C SCREENING 01/05/1983 HEPATITIS B VACCINE (1 of 3 - 19+ 3-dose series) 1984 PNEUMOCOCCAL VACCINE 50+ (1 of 1 - PCV) 2015 ZOSTER VACCINE (1 of 2) 2015 COVID-19 VACCINE ( - 2023-2 5 season) 2024 INFLUENZA VACCINE (#1) 2024 DEPRESSION SCREENING 11/24/2024 DTAP/TDAP/TD VACCINES (2 - T d or Tdap) 12/02/2029 12/02/2019 HIB VACCINE Aged Out No longer eligi ble based on patient's age to complete this topic HPV VACCINE Aged Out No longer eligi ble based on patient's age to complete this topic MENINGOCOCCAL (Group B) VACCINE Aged Out No longer eligible based on patient's age to complete this topic MENINGOCOCCAL VACCINE Aged Out No sandie casey eligible based on patient's age to complete this topic PNEUMOCOCCAL VACCINE Aged Out No long er eligible based on patient's age to complete this topic Care Teams Radiation Physicist Relationship Specialty Start Date End Date Charlie Albert [place] [id number] [place] [address] PCP - General 10/16/09
--- OUTSIDE RECORDS SUMMARY | 2024-12-23 07:13 | XMS_ITS | Patient Health Record ---
Author Organization [facility] Address [address] [place] [address] Care Team Providers Care Web Mobile Designer Name Role Phone Gustabo Le Unavailable [phone] Migration, Provider Unavailable Unavailable Allergies No Known Allergies Reason For Referral No Information Medications Medication SIG (Take, Route, Frequency, Duration) Notes Start Date End Date Status Levothyroxine Sodium 50 MCG Oral for 30 Days Active Venlafaxine HCl ER 150 MG 2 capsule Oral once a day for 90 days Active Venlafaxine HCl ER 75 MG 1 capsule in th morning Orally Once a day for 90 days Active Immunizations Vaccine Route Administration Date Status Comme nts Pfizer Biontech Covid-19 Vac cine 2nd dose Unknown 02/28/2021 Administered Pfizer Biontech Covid-19 Vac cine 2nd dose Unknown 03/21/2021 Administered Moderna Covid-19 Vaccine 1st dose Unknown 06/28/2021 Ad ministered Moderna Covid-19 Vaccine 1st dose Unknown 08/06/2021 Ad ministered Social History Sex Assigned At : Social History Observation Description Sex Assigned At Female Problems Problem Type SNOMED Code ICD Code Onset Dates Problem Status W/U Status Risk Notes Problem Severe recurrent major depression without psychotic features (47770047) Major depressive disorder, recurrent severe without psychotic features (F33.2) Active confirmed Problem Generalized anxiety disorder (97594919) Generalized anxiety disorder (F41.1) Active confirmed Problem Hypertension (00012912) Hypertension (I10) 05/17/20 16 Active confirmed Problem Left bundle branch block (77152141) LBBB (left bundle branch block) (I44.7) 05/17/20 16 Active confirmed Problem Tobacco abuse (90267625) Tobacco abuse (Z72.0) 05/17/20 16 Active confirmed Problem Alcoholic cardiomyopathy (CMS/HCC HHS/HCC) (I42.6) 05/17/20 16 Active confirmed Vital Signs Heart Rate 85 /min 07/02/2024 Height-cm 154.94 cm 07/02/2024 Blood pressure diastolic 81 mm Hg 07/02/2024 Weight-kg 85.28 kg 07/02/2024 Height 61.00 in 07/02/2024 Blood pressure systolic 119 mm Hg 07/02/2024 Weight 188.0 lbs 07/02/2024 BMI 35.52 kg/m2 07/02/2024 Encounters Encounter Location Date Provider Diagnosis [facility] [address] [place] [address] 02/13/2024 Gustabo Mimi Major depressive disorder, recurrent severe without psychotic features F33.2 and Generalized anxiety disorder F41.[address] [facility] [address] [place] [address] 03/03/2024 Gustabo Mimi Generalized anxiety disorder F41.1 and Major depressive disorder, recurrent severe without psychotic features F33.2 [facility] [employer] [facility] [address] [place] [address] 03/31/2024 Gustabo Mimi Generalized anxiety disorder F41.1 and Major depressive disorder, recurrent severe without psychotic features F33.[address] [facility] [employer] [address] [place] [address] 04/02/2024 Provider Migration Major depressive disorder, recurrent severe without psychotic features F33.[address] [facility] [address] [place] [address] 04/30/2024 Gustabo Mimi Major depressive disorder, recurrent severe without psychotic features F33.2 and Generalized anxiety disorder F41.1 [facility] [employer] [facility] [address] [place] [address] 07/02/2024 Gustabo Mimi Major depressive disorder, recurrent severe without psychotic features F33.2 ; Generalized anxiety disorder F41.1 ; Hypertension I10 and Alcoholic cardiomyopathy (CMS/HCC HHS/HCC) I42.[address] [facility] [address] [place] [address] 04/01/[address] [facility] [address] [place] [address] 04/10/2024 Provider [facility] [address] [place] [address] 04/11/2024 [facility] [address] [place] [address] 12/15/2024 Gustabo Le Major depressive disorder, recurrent [...] provider if necessary. - Ensure the preferred rougher helper (AUB) is specified for the generic Venlafaxine [...] provider if necessary. - Ensure the preferred rougher helper (AUB) is specified for the generic Venlafaxine [...] medication regimen and make any necessary adjustments. 03/31/2024 Major depressive disorder, recurrent severe without psychotic features (ICD-10 - F33.2) 03/31/2024 Generalized anxiety disorder (ICD-10 - F41.1) 03/03/2024 Major depressive disorder, recurrent severe without psychotic features (ICD-10 - F33.2) 03/03/2024 Generalized anxiety disorder (ICD-10 - F41.1) 02/13/2024 Major depressive disorder, recurrent severe without psychotic features (ICD-10 - F33.2) 02/13/2024 Generalized anxiety disorder (ICD-10 - F41.1) 12/15/2024 Major depressive disorder, recurrent severe without psychotic features (ICD-10 - F33.2) 07/02/2024 Major depressive disorder, recurrent severe without [...] but not significant. Patient mentioned stopping a metabolism-boostin g supplement that had lowered their mood. - [...] maintaining a one-month cushion of medication supply. 04/02/2024 Major depressive disorder, recurrent severe without psychotic features (ICD-10 - F33.2) 07/02/2024 Generalized anxiety disorder (ICD-10 - F41.1) [...] but not significant. Patient mentioned stopping a metabolism-boostin g supplement that had lowered their mood. - [...] but not significant. Patient mentioned stopping a metabolism-boostin g supplement that had lowered their mood. - [...] cushion of medication supply. 07/02/2024 Alcoholic cardiomyopathy ([facility]) (ICD-10 - I42.6) Depression and [...] but not significant. Patient mentioned stopping a metabolism-boostin g supplement that had lowered their mood. - [...] cushion of medication supply. Plan Of Treatment Next Appt Details Provider Name:Gustabo Le , 01/07/2025 03:45:00 PM, [address], [address], [place], [address], Insurance Providers Payer Name Payer Address Payer Phone Subscriber Number Group Number Insured Name Patient Relationship to Insured Coverage Start Date Coverage End Date [facility] [address] [address] [place] [address] [id number] ANDERSON KOO Self - patient is the insured Medical (General) History Medical History History ICD Code Problems: Body mass index 30+ - obesity Generalized anxiety disorder Long-term drug therapy Severe recurrent major depression withou t psychotic features , Surgical History Surgery Date(Month/Year) Removal of gallbladder (43704) 3
--- OUTSIDE RECORDS SUMMARY | 2024-12-23 07:13 | XMS_ITS | Data Portability ---
[facility] Address [address] [place] [address] Assessment Encounter Date Assessment Date Assessment LastModified by Organization Details LastModified Time 07/05/2020 07/05/2020 Case discussed with me in the preceptor room and I saw the patient in the room with the resident physician, supervised pap and cryosurgery. Agree with plan of care as listed above. Follow up as listed. All labs/rads/con sults to be followed by the ordering provider. [email or web address] Not available 07/05/2020 14:03:10 Plan of Treatment Reminders Order Date Submit Date Provider Last Modified By Organization Details Last Modified Time Details Appointments None recorded. Lab pap, IG + reflex HR HPV (16+18) 2019 [facility], [address] [place] [address], [address], [place], [address], 0 06:07:52 Referral None recorded. Procedures None recorded. Surgeries None recorded. Imaging US, echocardio gram 2019 020 LU[place] Not available 0 15:53:51 Medication Orders carvedilol 6.25 mg tablet 2019 020 INTERFACE [facility] #[id number], [address], [place], [id number], 0 11:30:31 carvedilol 6.25 mg tablet 2019 020 INTERFACE [facility] #[id number], [address], [place], [id number], 0 12:48:54 carvedilol 6.25 mg tablet 2020 INTERFACE [facility] #[id number], [address], [place], [id number], 1 11:09:40 fluticason e propionate 50 mcg/actuat ion nasal spray,susp ension 2020 021 INTERFACE [facility] #[id number], [address], [place], [id number], 11:09:40 Patient TargetsNo targets recorded. Patient Instructions Encounter Date Encounter Id Patient Instructions Last Modified By Organization Details Last Modified Time 12/10/2019 [id number] I was present and available in the family medicine clinic to discuss the patient's care during the appointment. I agree with the resident's assessment and plan as documented. HL [email or web address] Not available 12/14/2019 15:36:53 06/09/2020 [id number] I agree with short term FU and BP reassessment I was present and available in the family medicine clinic to discuss the patient's care during the appointment and I saw and examined patient during the apppointment. I agree with the resident's assessment and plan as documented. HL [email or web address] Not available 06/12/2020 23:51:28 12/25/2020 [id number] A healthy lifestyle: care instructions [email or web address] Not available 12/25/2020 11:09:34 I was present and available in the Family Medicine clinic to discuss this patient's care during the appointment. I agree with the resident's assessment and plan as documented. KIKE [email or web address] Not available 12/27/2020 09:31:49 11/05/2021 [id number] I was present and available in the Family Medicine clinic to discuss this patient's care during the appointment. I agree with the resident's assessment and plan as documented. CONCEPCION [email or web address] Not available 11/05/2021 11:46:05 Reason for Referral None Reported. Results Created Date Observation Date Name Description Value Unit Range Abnormal Flag Note LastModifiedBy Organization Detail LastModifiedTime 11/19/20 19 11/19/2019 strep tococ cus group A Ag scree n specimen type THROAT Not Available [facility] (Lab) [address], [place], [address], 11/19/2019 10:42:25 11/19/20 19 11/19/2019 strep tococ cus group A Ag scree n rapid strep A NEGATI VE neg Not Available [facility] (Lab) [address], [place], [address], 11/19/2019 10:42:25 11/19/20 19 11/19/2019 group A strep molec ular assay strep A molecular NEGATI VE neg SPECI MEN NEGAT AISHA FOR GROUP A STREP TOCOC CUS BY DNA AMPLI FICAT ION Not Available [facility] (Lab) [address], [place], [address], 11/19/2019 18:55:14 07/05/20 20 07/05/2020 pap, IG + refle x HR HPV (16+1 8) age gdln acog testing 30-65 Not Available [facility] ([facility]) [address] [facility] [address], [place], [address], 07/08/2020 06:07:52 07/05/20 20 07/06/2020 pap, IG + refle x HR HPV (16+1 8) diagnosis: Commen t NEGAT AISHA FOR INTRA EPITH ELIAL LESIO N OR JOSE JACINTO . Not Available [facility] ([facility]) [address] [facility] [address], [place], [address], 07/08/2020 06:07:52 07/05/20 20 07/06/2020 pap, IG + refle x HR HPV (16+1 8) specimen adequacy: Commen t Satis facto ry for evalu ation . Endoc ervic al and/o r squam ous metap lasti c cells (endo cervi sindi compo nent) are prese nt. Not Available [facility] ([facility]) [address] [place], [address], 07/08/2020 06:07:52 07/05/20 20 07/06/2020 pap, IG + refle x HR HPV (16+1 8) clinician provided ICD10: Flakita kelsey Z12.4 Not Available [facility] ([facility]) [address] [place], [address], 07/08/2020 06:07:52 07/05/20 20 07/06/2020 pap, IG + refle x HR HPV (16+1 8) performed by: Ac Montero Not Available [facility] ([facility]) [address] [place], [address], 07/08/2020 06:07:52 07/05/20 20 07/06/2020 pap, IG + refle x HR HPV (16+1 8) . . Not Available [facility] ([facility]) [address] [place], [address], 07/08/2020 06:07:52 07/05/20 20 07/06/2020 pap, IG + refle x HR HPV (16+1 8) note: Flakita kelsey The Pap smear is a scree stefan test desig nasrin to aid in the detec tion of indio ligna nt and malig nant condi tions of the uteri ne cervi x. It is not a diagn ostic proce dure and shoul d not be used as the sole means of detec ting cervi sindi cance r. Both false -posi tive and false -nega tive repor ts do occur . Not Available [facility] ([facility]) [address] [place], [address], 07/08/2020 06:07:52 07/05/20 07/06/2020 pap, IG + refle x HR HPV (16+1 8) test methodology: Commen t This liqui d based ThinP rep(R ) pap test was sofi alexandra with the use of an image guide sera delatorre Not Available [facility] ([facility]) [address] [facility] [address], [place], [address], 07/08/2020 06:07:52 07/05/2007/06/2020 pap, IG + refle x HR HPV (16+1 8) HPV, high-risk TNP The quant ity of speci men remai stefan in the vial after Pap slide prepa ratio n was less than the 4 mL minim um cell suspe nsion requi red. Low sampl e cellu larit y may be the cause . See HPV, low volum e rfx test resul t. This nucle ic acid ampli ficat ion high- risk HPV test detec ts thirt een high- risk types (16,1 8,31, 33,35 ,39,4 5,51, 52,56 ,58,5 9,68) witho ut diffe renti ation . Not Available [facility] ([facility]) [address] [facility] [address], [place], [address], 07/08/2020 06:07:52 07/05/2007/08/2020 pap, IG + HPV HPV, low volume rfx Negati ve negati ve This nucle ic acid ampli ficat ion test detec ts fourt een high- risk HPV types (16,1 8,31, 33,35 ,39,4 5,51, 52,56 ,58,5 9,66, 68) witho ut diffe renti ation . Not Available [facility] ([facility]) [address] [facility] [address], [place], [address], 07/08/2020 06:07:53 11/19/20 19 xr chest Pa+la t [facility] [address] [facility] [place] [address] Examin ation: XR CHEST PA+LAT Exam time: 2018 9:31 AM Clinic al histor y: Cough for 4 days Compar areli: 2018 PA and latera l chest Techni que: Uprigh t PA and latera l views Findin gs: Cardia c silhou ette and pulmon michelle vascul ature are within normal limits . Lungs appear clear. No eviden ce of pleura l reacti ons or effusi ons. No eviden ce of peribr onchia l cuffin g or bronch ial wall thicke stefan. Overal l, no radiog raphic eviden ce of active chest diseas e. IMPRES HANSA: No radiog raphic eviden ce of active chest diseas e. Electr onical ly Signed By: Jason Pal MD, MD on 2018 9:43 AM [email or web address] [facility]? [address], [place], [address], 11/22/2019 09:16:33 06/16/20 20 06/15/2020 US, echoc ardio gram No observ ation record ed. [email or web address] [facility] (Scheduling) [address] [facility] [place], [address], 06/19/2020 12:48:45 07/05/20 20 06/15/2020 US, echoc ardio gram No observ ation record ed. [email or web address] [facility] (Scheduling) [address] [facility] [place], [address], 07/10/2020 12:47:14 Result Notes None recorded. Problems Name Problem SNOMED Code Status Onset Date Resolution Date Notes Provider Name and Address Organization Details Recorded Time Pain of right wrist 60278538443 9100 Active 2017 Boogie Nuñez [place], [place] 0 19:28:12 Hyperlip idemia 20991763 Active 201805/05/18 ldl 148, HDL 48, tot chol 253 Anand Richardson null, [place] - [facility] 9 14:12:11 Tobacco user 508399769 Active 2018 Valerie crowell MD Attn: Accountlizy gay,[address] [facility], [place], [address] [place] - [facility] 9 15:21:20 History of alcoholi sm 882193927 Active 2018 quit 4 years ago Boogie rich [place] - [facility] 0 10:56:26 Sinusiti s 51018506 Completed 201806/09/2020 [place]ie [place] [facility] 0 19:13:54 Sinus headache 3088555 Completed 201806/09/2020 [place]ie [place] [facility] 0 19:13:47 Weight gain 1618832 Completed 201807/05/2020 Removal Reason: duplicat e Boogie [place], [place] - [facility] 0 13:03:23 Colon cancer screenin g declined 05461811631 109 Completed 201812/23/2020 Removal Reason: resolved , normal colonosc opy 2008 Boogie rich [place] [facility] 1 17:57:26 Screenin g for malignan t neoplasm of cervix declined 616216863 Completed 201807/05/2020 Removal Reason: resolved [place]ie [place] [facility] 0 13:02:39 Low blood pressure 36253353 Active 2019 [place]ie [place] [facility] 0 13:03:41 Body mass index 30+ - obesity 492279940 Active 2019 [place]ie [place] [facility] 0 13:03:09 History of inflamma tory bowel disease 500001161 Active 2019 on colonosc opy in 2006 and 2008, pt reports symptoms have resolved [place]ie [place] [facility] 0 15:21:16 Left bundle branch block 68782964 Active 2019 [place] [facility] 0 14:11:28 History of SARS-CoV -2 95623601300 4287053 Active 2020 Boogie rich [place] [facility] 1 23:17:07 Depressi ve disorder 11546630 Active 2016 venlafax ine, mirtazep ine Anand Richardson null, [place] - [facility] 9 14:07:41 Cardiomy opathy 33933457 Active 2016 Carvedil ol (a1 and b1 blocking bb). Probably 2/2 alcohol use. Nuclear stress test 2010 abnormal wall motion with EF 49%. Echo 05/09 EF 55-60, grade 1 diastoli c dysfunct ion. Echo 05/2020 EF 45-54%. Referred to cardiolo gy. Boogie Nuñez [place] [facility] 0 14:19:30 Vertigo 367055963 Active 2016 OTC mecFemi Richardson [place] - [facility] 9 15:07:10 Hypertri glycerid emia 580764835 Active 2016 Ivonne Palafox [place] [facility] 7 12:22:47 Problem Notes None recorded. Procedures Surgical History Date Name Laterality Status Provider Name and Address Organization Details Recorded Time 07/05/20 20 Cryosurgery Warts/Skin Tags completed Boogie Joaquin [place] 07/05/2020 13:06:33 08/10/20 19 Generic Procedure completed Mian Cordova [place] [facility] 08/10/2019 13:40:32 Cholecystectomy completed [place]vonne Palafox [place] 01/16/2017 10:21:23 Imaging Results Imaging Date Name Status LastModified by Organization Details LastModified Time 11/19/2019 xr chest Pa+lat completed [email or web address] [facility]? [facility] [address] [facility], [place], [address], 11/22/2019 09:16:33 06/15/2020 US, echocardiogram completed [email or web address] [place] [address] (Scheduling) [address] [place], [address], 06/19/2020 12:48:45 06/15/2020 US, echocardiogram completed [email or web address] [facility] (Scheduling) [address] [place], [address], 07/10/2020 12:47:14 Procedure Notes None recorded. Medical Equipment None Reported. Allergies No known drug allergies Medications Name Sig Start Date Stop Date Status Note LastModified by Organization Details LastModified Time carvedilo l 25 mg tablet TAKE 1 TABLET BY MOUTH TWICE DAILY DIRECTED 12/07 completed Not Available Not Available Not Available carvedilo l 6.25 mg tablet TAKE 1 TABLET BY MOUTH TWICE DAILY active Not Available Not Available No t Available venlafaxi ne ER 75 mg capsule,e xtended release 24 hr TAKE 1 CAPSULE BY MOUTH EVERY DAY IN THE MORNING active Not Available Not Available No t Available carvedilo l 12.5 mg tablet TAKE 1 TABLET BY MOUTH TWICE DAILY 07/05 completed Not Available Not Available Not Available azithromy ebenezer 250 mg tablet 12/09 completed Not Available Not Available Not Available Medrol (Rogelio) 4 mg tablets in a dose pack Use as directed . 05/05 completed Not Available Not Available Not Available venlafaxi ne ER 150 mg capsule,e xtended release 24 hr TAKE 1 CAPSULE BY MOUTH TWICE DAILY active Not Available Not Available No t Available lamotrigi ne 25 mg tablet TAKE 1 TABLET BY MOUTH EVERY NIGHT AT BEDTIME FOR 2 WEEKS THEN TAKE 2 TABLETS BY MOUTH EVERY NIGHT AT BEDTIME active Not Available Not Available No t Available mirtazapi ne 30 mg tablet TAKE 1 TABLET BY MOUTH EVERY DAY AT BEDTIME active Not Available Not Available No t Available prednison e 50 mg tablet 12/09 completed Not Available Not Available Not Available albuterol sulfate HFA 90 mcg/actua tion aerosol inhaler Inhale 2 puffs every 6 hours by inhalati on route as needed. 12/14 completed Not Available Not Available Not Available fluticaso ne propionat e 50 mcg/actua tion nasal spray,joanne pension SHAKE LIQUID AND USE 2 SPRAYS IN EACH NOSTRIL EVERY DAY active Not Available Not Available No t Available amoxicill in 875 mg-potass ium clavulana te 125 mg tablet Take 1 tablet every 12 hours by oral route for 7 days. 06/28 completed Not Available Not Available Not Available Bactrim DS 800 mg-160 mg tablet Take 1 tablet every 12 hours by oral route for 5 days. 02/13 completed Not Available Not Available Not Available fenofibra te 160 mg tablet Take 1 tablet every day by oral route. 10/05 completed Not Available Not Available Not Available Fish Oil active Not Available Not Avai lable Not Available meclizine active 5? or 10? dramamin e not prescrib ed Not Available Not Available Not Available Vitamin D3 active Not Available Not Available Not Available multivita min active Not Available Not Available Not Available diclofena c 1 % topical gel APPLY 2 GRAMS TO THE AFFECTED AREA(S) BY TOPICAL ROUTE 4 TIMES PER DAY 12/14 completed Not Available Not Available Not Available B12 active Not Available Not Availa ble Not Available Virtussin AC 10 mg-100 mg/5 mL oral liquid Take 5 mL every 4-6 hours by oral route as needed. 05/14 completed Not Available Not Available Not Available Vitals Date Recorded Body height Provider Name an d Address Organization Details Last Updated DateTime 12/10/2019 156.85 cm Juan Kumar [facility] 12/10/2019 09:44:45 Date Recorded Body mass index (BMI) Body weight Provider Name and Address Organization Details Last Updated DateTime 12/10/2019 33.6 kg/m2 13506.26 g Juan Kumar [facility] 09:44:52 Date Recorded Heart rate Provider Name an d Address Organization Details Last Updated DateTime 12/10/2019 100 /min Juan Kumar [facility] 12/10/2019 09:45:30 Date Recorded Oxygen saturation Oxygen saturation in Arterial blood by Pulse oximetry Provider Name and Address Organization Details Last Updated DateTime 12/10/2019 98 % 98 % Juan Kumar [facility] 12/10/2019 09:45:32 Date Recorded Body temperature Provider Name a nd Address Organization Details Last Updated DateTime 12/10/2019 98.2 [degF] Juan Kumar [facility] 0 09:45:34 Date Recorded Body height Provider Name an d Address Organization Details Last Updated DateTime 06/09/2020 156.85 cm Dania Denney [facility] 020 10:02:17 Date Recorded Body temperature Provider Name a nd Address Organization Details Last Updated DateTime 06/09/2020 99.5 [degF] Dania Denney MA [facility] 2019 10:04:52 Date Recorded Body mass index (BMI) Body weight Provider Name and Address Organization Details Last Updated DateTime 06/09/2020 33.7 kg/m2 33415.4 g Dania Denney MA [facility] 06/09/2020 10:05:36 Date Recorded Heart rate Provider Name an d Address Organization Details Last Updated DateTime 06/09/2020 112 /min Dania Denney MA [facility] 020 10:06:15 Date Recorded Oxygen saturation Oxygen saturation in Arterial blood by Pulse oximetry Provider Name and Address Organization Details Last Updated DateTime 06/09/2020 98 % 98 % Dania Denney MA [facility] 06/09/2020 10:06:21 Date Recorded Heart rate Provider Name an d Address Organization Details Last Updated DateTime 06/09/2020 96 /min Dania Denney MA [facility] 020 11:25:20 Date Recorded Heart rate Provider Name an d Address Organization Details Last Updated DateTime 06/09/2020 92 /min Dania Denney MA [facility] 020 11:25:24 Date Recorded Heart rate Provider Name an d Address Organization Details Last Updated DateTime 06/09/2020 96 /min Dania Denney MA [facility] 020 11:25:33 Date Recorded Body height Provider Name an d Address Organization Details Last Updated DateTime 07/05/2020 156.85 cm Kristal Mitcehll MA [facility] 2019 11:43:01 Date Recorded Body mass index (BMI) Body weight Provider Name and Address Organization Details Last Updated DateTime 07/05/2020 34 kg/m2 53589.45 g Kristal Mitchell MA [facility] 07/05/2020 11:43:11 Date Recorded Body temperature Provider Name a nd Address Organization Details Last Updated DateTime 07/05/2020 99.1 [degF] Kristal Mitchell MA [facility] 07/05/2020 11:44:53 Date Recorded Oxygen saturation Oxygen saturation in Arterial blood by Pulse oximetry Provider Name and Address Organization Details Last Updated DateTime 07/05/2020 99 % 99 % Kristal Mitchell MA [facility] 07/05/2020 11:45:15 Date Recorded Heart rate Provider Name an d Address Organization Details Last Updated DateTime 07/05/2020 76 /min Kristal Mitchell MA [facility] 2019 11:45:17 Date Recorded Body height Provider Name an d Address Organization Details Last Updated DateTime 12/25/2020 156.85 cm Dania Denney MA [facility] 021 09:58:14 Date Recorded Body mass index (BMI) Body weight Provider Name and Address Organization Details Last Updated DateTime 12/25/2020 32.9 kg/m2 79232.49 g Dania Denney MA [facility] 12/25/2020 10:01:38 Date Recorded Body temperature Provider Name a nd Address Organization Details Last Updated DateTime 12/25/2020 99.1 [degF] Dania Denney MA [facility] 2020 10:01:54 Date Recorded Heart rate Provider Name an d Address Organization Details Last Updated DateTime 12/25/2020 100 /min Dania Denney MA [facility] 021 10:01:56 Date Recorded Oxygen saturation Oxygen saturation in Arterial blood by Pulse oximetry Provider Name and Address Organization Details Last Updated DateTime 12/25/2020 97 % 97 % Dania Denney MA [facility] 12/25/2020 10:02:01 Date Recorded Body height Provider Name an d Address Organization Details Last Updated DateTime 11/05/2021 156.85 cm Chidigeremias Narinder [facility] 11/05/2021 11:22:08 Date Recorded Systolic blood pressure Diastolic blood pressure Provider Name and Address Organization Details Last Updated DateTime 12/10/2019 100 mm[Hg] 70 mm[Hg] Juan Kumar CMA [facility] 12/10/2019 09:46:55 Date Recorded Systolic blood pressure Diastolic blood pressure Provider Name and Address Organization Details Last Updated DateTime 06/09/2020 90 mm[Hg] 70 mm[Hg] Dania Denney MA [facility] 06/09/2020 10:10:50 Date Recorded Systolic blood pressure Diastolic blood pressure Provider Name and Address Organization Details Last Updated DateTime 06/09/2020 90 mm[Hg] 70 mm[Hg] Dania Denney MA [facility] 06/09/2020 11:24:31 Date Recorded Systolic blood pressure Diastolic blood pressure Provider Name and Address Organization Details Last Updated DateTime 06/09/2020 88 mm[Hg] 60 mm[Hg] Dania Denney MA [facility] 06/09/2020 11:24:52 Date Recorded Systolic blood pressure Diastolic blood pressure Provider Name and Address Organization Details Last Updated DateTime 06/09/2020 92 mm[Hg] 60 mm[Hg] Dania Denney MA [facility] 06/09/2020 11:25:09 Date Recorded Systolic blood pressure Diastolic blood pressure Provider Name and Address Organization Details Last Updated DateTime 07/05/2020 102 mm[Hg] 70 mm[Hg] Kristal Mitchell MA [facility] 07/05/2020 11:44:48 Date Recorded Systolic blood pressure Diastolic blood pressure Provider Name and Address Organization Details Last Updated DateTime 12/25/2020 106 mm[Hg] 80 mm[Hg] Dania Denney MA [facility] 12/25/2020 10:07:09 Social History Question Answer Notes LastModified by Organization Details LastModified Time Tobacco Smoking Status [facility] 10:22:27 What Is Your Level Of Alcohol Consumption? None Previously Drank Every Night, Diagnosed With Alcoholic Cardiomyopathy Ca 2012 Information not available 08/10/2019 Do You Or Have You Ever Used E-cigarettes Or Vape? Never Used Electronic Cigarettes Information not available 12/10/2019 Hard Of Hearing Or Deaf In One Or Both Ears? No Information not available 01/16/2017 Legally Blind In One Or Both Eyes? No Information not available 01/16/2017 What Was The Date Of Your Most Recent Tobacco Screening? 12/25/2020 [email or web address] Information not available 12/25/2020 How Many Children Do You Have? 2 Information not available 08/04/2020 Do You Or Have You Ever Used Smokeless Tobacco? Never Used Smokeless Tobacco Information not available 12/10/2019 How Much Tobacco Do You Smoke? 0.5 PPD 6 Cigarettes/day Information not available 11/05/2021 Do You Use Any Illicit Or Recreational Drugs? No Information not available 11/05/2021 On What Date Was Tobacco Cessation Counseling Provided? 12/25/2020 [email or web address] Information not available 12/25/2020 How Many Years Have You Smoked Tobacco? 30 Information not available 01/16/2017 Do You Or Have You Ever Used Any Other Forms Of Tobacco Or Nicotine? Yes Information not available 11/05/2021 Sex: Unknown Functional Status Question Answer Note LastModified by Organization D etails LastModified Time Are you able to care for yourself? Yes Information n ot available 01/16/2017 Mental Status None recorded. Family History Relationship Description Onset Age of this Age Resolved Age Notes LastModified by Organization Details LastModified Time Brother Alcohol abuse [email or web address] Not available 2016 10:21:54 Mother Atrial fibrillation [email or web address] Not available 10:22:05 Mother Cerebrovascu lar accident [email or web address] Not available 10:22:15 Medical History Condition Response Coronary Artery Disease N Other N Atrial Fibrillation N High Blood Pressure N Thyroid Problems N Kidney or Bladder Problems N Depression Y COPD N Blood Clots N GI Problems N Skin Problems N Anemia N Heart Attack ([place]) N Diabetes N Anxiety Disorder N Muscle, Joint, or Bone Problems N Seizures/Epilepsy N Acid Reflux (GERD) N Cancer N Stroke N Allergies N Asthma N High Cholesterol N Hepatitis N Liver Disease N Headaches N Osteoporosis N Heart Failure N Gynecological HistoryNo gynecological history recorded. Obstetrics History GPAL:G 0 P 0 0 0 0 Immunizations Vaccine Type Date Status Note Provider Nam e and Address Organization Details Recorded Time COVID-19, mRNA, LNP-S, PF, 30 mcg/0.3 mL dose 02/28/2021 completed Mackenzie Echavarria [place], [place] [facility] 08/09/2021 13:55:13 COVID-19, mRNA, LNP-S, PF, 30 mcg/0.3 mL dose 03/21/2021 completed Mackenzie Ech[place]ar[place] [facility] 08/09/2021 13:55:21 MMR 12/10/2019 completed Dania Denney [place], [place] [facility] 12/10/2019 12:46:20 Tdap 11/24/2014 completed Ivonne Palafox [place] - [facility] 01/16/2017 10:23:22 Past Encounters Encounter ID Performer Location Encounter Start Date Encounter Closed Date Diagnosis/Indication Diagnosis SNOMED-CT Code Diagnosis ICD10 Code Diagnosis Note [id number] Cristobal Edge MD [address] [address] 01/16/2017 09:57:07 01/23/2017 15:22:59 Depressive disorder 77073776 F32.89 Vertigo 714327948 R42 Smoker 11062795 F17.574 [id number] Cristobal Edge MD [address] [address] 02/13/2017 11:38:06 02/21/2017 10:24:35 Depressive disorder 40017318 F32.89 Vertigo 299015835 R42 Smoker 98191855 F17.200 Rec to quit. Cardiomyopathy 65060382 I42.[address] Carlitos Posey, and is on carvedilol . Hypertriglyceridemia 302 454533 E78.1 Fish oil twice daily. Recheck TG in 3 months. Urinary tr act infectious disease 65271983 N39.0 Treated with bactrim ds. Adult heal th examination 139160086 Z00.00 Had colonoscop y four years back per Dr Mclean, per pt she had ulcerative colitis, but cleared on its own, she quit taking medication then. Uptodate on mammogram. Pap smear last yr, has had normal all along. [id number] Cristobal Edge MD [address] [address] 05/16/2017 10:26:54 05/16/2017 14:44:10 Depressive disorder 99623549 F32.89 No longer seeing Psych due to insurance. Smoker 86481485 F17.200 Rec to quit. Cardiomyopathy 49384536 I42.[address] Carlitos Posey due to insurance, continue carvedilol . Hypertriglyceridemia 302 107562 E78.1 Continue fish oil, pt reluctant to try fenofibrat e. [id number] Cristobal Edge MD [address] [address] 07/15/2017 14:56:48 07/18/2017 09:37:46 Skin lesion 69703685 L98.9 R leg and R ear [id number] Cristobal Edge MD [address] [address] 11/10/2017 12:18:08 01/30/2018 10:21:15 Acute upper respiratory infection 99292686 J06.9 [id number] Cristobal Edge MD [address] [address] 11/14/2017 10:51:47 11/21/2017 15:49:25 Depressive disorder 40732945 F32.89 No longer seeing Psych due to insurance. Smoker 90238408 F17.200 Rec to quit. Cardiomyopathy 00031024 I42.[address] Carlitos Posey due to insurance, continue carvedilol . Hypertriglyceridemia 302 403674 E78.1 Numbers better this time, though still above 150, continue fish oil.LDL is 126, should be under 130. Monitor. Alkaline p hosphatase above reference range 908943184 R74.8 Check GGT with next labs. Acute sinusitis 65725102 J01.90 [id number] Jessica Langford MD [address] [address] 05/28/2018 11:20:41 06/08/2018 15:02:03 Mixed hyperlipidemia 927024055 E78.2 discussed benefits of lowering lipids Cigarette smoker 9210365 7 F17.210 encouraged patient to quit smoking Depressive disorder 3548 9007 F32.9 Cardiomyopathy 74030651 I42.9 Body mass index 30+ - obesity 924162124 Z68.33 discussed low fat, low carb diet, and encouraged exercise. [id number] Jessica Langford MD [address] [address] 10/05/2018 10:33:17 10/12/2018 09:41:23 Pain of right wrist 8604062577 37102 M25.531 patient has had pain for about a week, and is developing weakness in the right hand; I am concerned about a scaphoid fracture. 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 [id number] Valerie Mishra-Benigno berman MD [facility] [address] [facility] [address] [place] [address] 06/28/2019 14:29:50 06/29/2019 12:09:00 Tobacco user 569007416 Z72.0 Chronic. Precontemp lative. 5-10 cigarettes daily.- Briefly discussed cardiovasc ular risks associated with persistent nicotine use- Patient refused further counsellin g on the topic Hyperlipidemia 17516703 E78.5 Based on prior lipid panel. 05/05/18 ldl 148, HDL 48, tot chol 253. With progressiv e obesity- discussed improved diet and exercise.- repeat lipids, A1C for risk stratifica tion and consider statin Depressive disorder 7610 9007 F33.9 Chronic. Well controlled . Chronic high dose of venlafaxin e coupled with mirtazapin e requires close monitoring - CMP for liver and kidney, and potential electrolyt e abnormalit ies given progressiv e obesity and being on antidepres sants - provided list of local psychiatri c care providers at patient request- refused and uninterest ed in non-psychi atrist/psy chologist therapist - return to care 6 week Cardiomyopathy 99125647 I42.9 Echo hx unclear, but pt reports last was 6 years ago at her last cardiology appointmen t.- carvedilol refill- request records from last cardiologi st- labs for risk stratifica tion and for multiple risk factors for liver disease and kidney disease- return in 6 weeks for considerat ion of cardiology referral and echocardio gram Sinus headache 3556328 R 51 2 weeks of sinusitis unlikely to be bacterial or functional . Most likely non-infect ious, smoking related most likely, or possibly mild viral etiology is likely as patient is afebrile, without purulent discharge. - Weight gain 1222085 R63. 5 200 pounds, BMI 37. 20 pound increase in last year- as hyperlipid emia management specified above. [id number] [facility] [address] [facility] [address] [place] [address] 08/10/2019 11:46:50 08/12/2019 12:30:03 Tenosynovitis of right radial styloid 3988919620 0748554 M65.4 Injected w/20mg triamcinol one and 2mL 1% plain lidocaine in office today.Plac ed in thumb spica.- RTC 2 wks for repeat injection if needed Screening for malignant neoplasm of breast 789004755 Z12.31 Last mammo ~5 yrs ago- screening mammogram Screening for malignant neoplasm of colon 646481003 Z12.11 Had diagnostic colonoscop ies about every year for few years because of abdominal pain until 5-6 years ago. Pain since resolved. Denies hematochez ia, melena, change in bowel habits.- refer to GI for screening colonoscop y Screening for malignant neoplasm of cervix 703315558 Z12.4 Last pap ~5 yrs ago.- RTC ~2 wks to do pap Cardiomyopathy 55731824 I42.9 Alcoholic dilated cardiomyop athy with LBBBLast seen cards and had TTE ~4 yrs ago, lost to followup due to insurance changes. At that time, was told her cardiac function was normal.Rahat es coreg 25/bid.- refer to cardiology for repeat TTE, unclear cardiac status currently- consider addition of other cardiac meds if indicated, discontinu ation of coreg if no clear indication History of alcoholism 16 9912261 F10.21 States sober since 2016 (~3 yrs) when she quit her job and moved in with her mom I can't afford it .+compl ications: cardiomyop athy- counseled continued abstinence - NTD for now, will explore further as needed in future [id number] Kaye Beaver MD [facility] [address] [facility] [address] [place] [address] 09/09/2019 14:19:56 09/13/2019 09:09:24 Arthritis of hand 780792850 M13.849 osteoarthi tis of base of first digit right handdiclof enac geld/c aspirin 325x3 qhs Cardiomyopathy 27101452 I42.9 ?Alcoholic dilated cardiomyop athy with LBBBLast seen cards and had TTE ~4 yrs ago, lost to followup due to insurance changes.At that time, was told her cardiac function was normal .St opped BB due to tiredness, HR ~115 today. - outstandin g referral to cardiology for repeat TTE, unclear cardiac status currently - consider addition of other cardiac meds if indicated, discontinu ation of coreg if no clear indication - for now, restart coreg at lower dose of 12.5/bid [id number] [facility] [address] [facility] [address] [place] [address] 12/10/2019 09:39:02 12/14/2019 11:41:55 Screening for malignant neoplasm of breast 021247511 Z12.31 Last mammo ~5 yrs ago- refuses screening mammogram at this time Screening for malignant neoplasm of colon 960999124 Z12.11 Had diagnostic colonoscop ies about every year for few years because of abdominal pain until 5-6 years ago. Pain since resolved. Denies hematochez ia, melena, change in bowel habits.- refuses GI referral for screening colonoscop y at this time Screening for malignant neoplasm of cervix 886731885 Z12.4 Last pap ~5 yrs ago.- refuses pap at this time Cardiomyopathy 92257030 I42.9 ?Alcoholic dilated cardiomyop athy with LBBBLast seen cards and had TTE ~4 yrs ago, lost to followup due to insurance changes.At that time, was told her cardiac function was normal .St opped BB due to tiredness, HR ~115 previously , re-started low-dose coreg. - previously made referral to cardiology , pt now refuses - continue coreg 12.5/bid History of alcoholism 16 9167953 F10.21 States sober since 2016 (~3 yrs) when she quit her job and moved in with her mom I can't afford it .+compl ications: cardiomyop athy- counseled continued abstinence - NTD for now, will explore further as needed in future Active or passive immunization 445178445 Z23 needs second dose of MMR per [employer] Colon canc er screening declined 1174483475 9109 Z53.20 Screening for malignant neoplasm of cervix declined 586360066 Z53.20 Breast can cer screening declined 5770402739 6392763 Z53.20 Depressive disorder 3548 9007 F32.9 sx controlled on current regimen- continue effexor XR 75/d- continue remeron 30/hs Tuberculos is screening 846263942 Z11.1 States PPD done and negative at [facility] .- pt will obtain and send us records.- 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 [id number] Valerie berman MD [facility] [address] [place] [address] 06/09/2020 09:52:03 06/12/2020 07:06:54 Depressive disorder 52079461 F32.9 Establishe d, stable. Patient reports mood is stable. Current stressor is living in her mother's home. Uses coloring books and smoking as coping strategies . Continue venlafaxin e and mirtazapin e. Cardiomyopathy 19275892 I42.9 Establishe d, stable. Last two echos were normal per patient. On carvedilol 12.5 mg bid. Not seeing cardiology . Will get previous echo results from Dr. Posey's office and repeat an echo now. Sinus headache 8540738 R 51 Currently having a sinus headache for 6 days. Pain was worst at onset, now has pressure feeling at bridge of nose, currently 4/10, improving. Takes flonase. Has photophobi a and phonophobi a, some nausea, no vomiting. Usually worse at this time of year. Better with ibuprofen. Likely self-limit ing. Return to clinic with fever, worsening pain. Tobacco user 222283310 Z 72.0 6 cigarettes /day. Precontemp lation phase. Uses cigarettes to cope with stress. Encouraged to quit. Colon [facility] screening declined 1049900782 9109 Z53.20 Multiple colonoscop ies for abdominal pain in the past, all normal per patient. Last 6 years ago. Will get records for past colonoscop y results from Dr. Mclean. Discussed other methods of colon cancer screening and patient may be amenable. Will discuss further at next visit. Screening for malignant neoplasm of cervix declined 295580997 Z53.20 Last pap was normal, five years ago. Never had abnormal. Agrees to pap at a future visit. Hyperlipidemia 42991735 E78.5 Last lipid panel 06/2019 total cholestero l 209, trig 366, HDL 43, LDL 93. 10-year ASCVD risk 4.3%. Not on statin. Will recheck lipids next year. Low blood pressure 13498 003 I95.9 90/70 today. HR 112. Orthostati cs negative. Asymptomat ic. Decrease dose of carvedilol from 12.5 to 6.25 mg daily. Patient to record home BP readings and bring log to next appointmen t. Call or return to clinic with dizziness, lightheade dness. Encouraged adequate oral hydration in the hot weather. Pain of right wrist 3169 451257 93639 M25.531 Establishe d, stable. R [facility] arthritis on XR 10/05/18. Worse with coloring or extensive use of phone. Encouraged rest. Can take OTC tylenol or ibuprofen prn. [id number] Maya Bernabeter [facility] [address] [facility] [address] [place] [address] 07/05/2020 11:35:25 07/06/2020 07:30:48 Cardiomyopathy 56942067 I42.9 Establishe d, stable. Likely secondary to alcohol use. Not seeing cardiology currently. Echo 06/15/20 at [facility] with global hypokinesi s of left ventricle - only first page faxed. Will obtain full echo report. Low blood pressure 90492 003 I95.9 Asymptomat ic, likely secondary to cardiomyop athy. On carvedilol 6.25 mg bid for a month, decreased from 12.5 mg, and tolerating well. BP improved with this dose - 110s/70s ambulatory BP, 102/70 in clinic today. Screening for malignant neoplasm of cervix 531620255 Z12.4 Pap smear done today with HPV co-testing . Normal appearing cervix. Inflamed s eborrheic keratosis 597830817 L82.0 Inflamed SK posterior right thigh. Treated with cryosurger y today. Patient tolerated well. [id number] Star Caceres MD [facility] [address] [facility] [address] [place] [address] 12/25/2020 09:53:16 12/28/2020 08:41:14 Obesity 458816792 E66.9 BMI 32.9 Cardiomyopathy 17123191 I42.9 Establishe d, stable. Likely secondary to history of heavy alcohol use until 4 years ago. Echo 06/15/20 with global hypokinesi s of left ventricle, EF 45-54%. HR 100 initially, normal on physical exam. BP stable, 106/80 today.- Continue carvedilol 6.25 mg bid- Patient to call for appointmen t with Dr. Posey once her new insurance starts Depressive disorder 5680 9008 F32.9 Establishe d, stable. 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 Still has dark moods occasional ly that last 1-2 weeks. Has been on venlafaxin e 375 mg daily for about 25 years. Has been on zoloft and multiple other medication s in the past that did not work well for her. Wants to see psychiatry again once her new insurance starts in about 3 months.- PHQ-9: 0 - Continue venlafaxin e 375 mg daily (2x 150 mg + 75 mg)- Continue mirtazapin e 30 mg every night- Patient to call for appointmen t with Dr. Blackburn once her new insurance starts Seasonal a llergic rhinitis 481765559 J30.2 Establishe d, stable. Sinus symptoms much improved with the use of flonase.- Continue flonase 1 spray per nostril daily [id number] Sarita Doll [facility] [address] [facility] [address] [place] [address] 11/05/2021 10:47:03 11/06/2021 08:29:02 COVID-19 556246445 U07.1 Resolved- Isolation ends 11/05- UTD w/ vaccine- Work note given Health Concerns Section Related Observation LastModified by Organization Detai ls LastModified Time None Recorded Concern Status LastModified by Organization Details LastModified Time None Recorded Advance Directives Directive None Recorded Payers Encounter Date Sequence Insurance Name Policy Number Policy Mcclellan Covered Member ID Mcclellan Member ID Guarantor Name 12/10/2019 1 [facility] PRIOR TO 05/24/2021 (MEDICAID REPLACEMENT - HMO) Krupa Johnson [id number] Krupa Johnson 06/09/2020 1 [facility] PRIOR TO 05/24/2021 (MEDICAID REPLACEMENT - HMO) Krupa Johnson [id number] Krupa Johnson 07/05/2020 1 [facility] PRIOR TO 05/24/2021 (MEDICAID REPLACEMENT - HMO) Krupa Johnson [id number] Krupa Johnson 12/25/2020 1 [facility] - [facility] PRIOR TO 2021 (MEDICAID REPLACEMENT - HMO) Krupa Johnson [id number] Krupa Johnson 11/05/2021 1 [employer] (POS) [id number] Krupa Johnson [id number] Krupa Johnson 11/05/2021 2 [place] Krupa Johnson [id number] Krupa Johnson Notes Date Note Type Note Provider Name and Address Organization Details Recorded Time 12/10/2019 text/html 54F presents for 3 mos month fu, and 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 She states she had the PPD done at [facility], but has no record of same. Cardiomyopathy:?Alcoho lic dilated cardiomyopathy with LBBB. Last seen cards and had TTE ~2014, lost to follow-up due to insurance changes. At that time, was told her cardiac function was normal. Was taking coreg 25/bid, but stopped without consulting physician due to tiredness. Was referred back to cardiology, but has not seen or called. Now back on coreg at 12.5/bid. Alcoholism: States sober since ~2015 when she quit her job and moved in with her mom I can't afford it . Colon:She states she had diagnostic colonoscopies about every year for few years because of abdominal pain until 5-6 years ago. Pain since resolved. Denies hematochezia, melena, change in bowel habits. Mood:Euthymic on current remeron and effexor. Refuses breast, colorectal, and cervical ca screening. ROS: No f/c, PRESTON, SOB, CP, n/v/d/c, abd pain, urinary urgency/frequency/pain , weakness, numbness, LOC, swelling, or rash. Valerie Andre MD Attn: Accounting,[address] [facility], [place], [address], [place] 12/14/2019 15:36:56 06/09/2020 text/html Patient here to establish care and for follow up of chronic conditions. Sinus pressure for the past 5 days, describes as pressure over the bridge of the nose, currently 4/10 and intermittent, improving. Better with ibuprofen and flonase. This has happened before and often occurs this time of year. Cardiomyopathy: Per patient, last 2 echos have been normal. She is feeling well, no fatigue or palpitations. Declined to follow with cardiology in the past. Cancer screenings: Declined in the past due to not having enough time in her work schedule. Has had multiple colonoscopies for abdominal pain but all were normal. Last was about 5-[address] Mclean. Last pap was 5 years ago and has never had an abnormal result. Right wrist pain: Still has pain, worse with phone use and coloring. Mostly at base of thumb. Past XR right wrist was negative for fracture, positive for arthritis. Still smoking about 6 cigarettes/day. No thoughts of quitting. Worries that if she quit she would not be able to cope with stress of living with her mother. Valerie Andre MD Attn: Accounting[address] [place], [address], [facility] 06/12/2020 23:51:33 07/05/2020 text/html Patient presents for follow up of asymptomatic hypotension. Last BP in clinic 88/60 - 90/70. Today 102/70. Ambulatory monitoring BP stable ranging 108/77 to 131/83, most measurements in the 110s/80s. HR 70s-110s. Denies any dizziness, lightheadedness, fatigue. Echo 06/15 with left ventricular global hypokinesis and mildly reduced systolic function; normal valvular function. Incomplete echo report faxed. Complains of multiple skin lesions that bother her on the right forehead, right earlobe, and legs. One of the lesions on her right leg is darker and itches. Maya rich, [facility] 07/05/2020 14:03:15 12/25/2020 text/html Patient presents for follow-up of depression and alcoholic cardiomyopathy. She was previously seen by Dr. Posey but hadn't been able to follow up due to her insurance. She was referred to cardiology after repeat echo in 05/2020 showed EF 45-54%. She did not end up seeing a new commercial insulator but wants to go back to see Dr. Posey after her new insurance starts. She reports her mood is better. 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 States she still gets depressed from time to time and that she has worsening depression if she decreases her dose of venlafaxine. She is currently smoking 6 cigarettes per day. She is in the precontemplation phase and states she likes smoking . She has smoked 1 ppd for 17 years plus about 6 cigarettes/day for the last 4 years since she quit alcohol, total of about 18 pack years. Doesn't want a mammogram now but is willing to get one in 3 months. Star Caceres MD Attn: Accounting[address] [place], [address], [facility] 12/27/2020 09:31:54 11/05/2021 text/html 56 y/o F calls requesting medical clearance for return to work after covid- Sx onset on 10/26 which included cough, sore throat, and headache. Sx resolved aorund 10/31. Denies fever, chills, nausea, vomiting, chest pain, dyspnea, and abdominal pain. Has received covid vaccine. Sarita rich, [place] [facility] 11/05/2021 11:48:13 OBGyn Episode No OBEpisode recorded.
--- OUTSIDE RECORDS SUMMARY | 2024-12-23 07:13 | XMS_ITS | Referral Summary ---
Author Organization [facility] [employer] Address [address] [place] [address] Care Team Providers Care Control And Recovery Special Tactics Name Role Phone Charlie Albert MD Primary Care Provider [phone] Source Comments [facility] [employer],non-owned Affiliates and Associated Physician Practices is amultiple site organization consisting of ambulatory clinics and hospital sitesin [place], [place], [place]. This disclosure is being madepursuant to the Care Everywhere program and may not contain all information available regarding this patient. Last updated 18.[facility] [employer] Allergies No known active allergies Immunizations Name Administration Dates Next Due TDAP (7yrs+) 12/02/2019 Social History Tobacco Use Types Packs/Day Years Used Date Smoking Tobacco: Never Assessed Sex and Gender Information Value Date Recorded Sex Assigned at Not on file Gender Identity Not on file Sexual Orientation Not on file Plan of Treatment Not on file Administered Medications Care Teams Control And Recovery Special Tactics Relationship Specialty Start Date End Date Charlie Albert [place] [id number] [place] [address] PCP - General 10/16/09
--- OUTSIDE RECORDS SUMMARY | 2024-12-23 07:13 | XMS_ITS | Encounter Summary ---
Author Organization [facility] Address [address] [place] [address]. [place], [place] [id number] [place] [address] Care Team Providers Care Miter Grinder Operator Name Role Phone Lindsey Hardy Primary Care Provider [phone] Carlitos Posey MD Unavailable Lindsey Hardy Primary Care Provider [phone] Judson Garcia MD Primary Care Provider Unavailable Jessica Langford MD Primary Care Provider [phone] Mian Cordova MD Primary Care Provider [phone] Boogie Nuñez DO Primary Care Provider [phone] Encounter Details Date Type Department Care Team (Late st Contact Info) Description 05/02/2015 Abstract [facility] AT [address] [address] Gia Rojo, ANP-BC [address] [phone] Social History Tobacco Use Types Packs/Day Years Used Date Smoking Tobacco: Every Day Cigarettes Alcohol Use Standard Drinks/Week Comments Yes 41.7 (1 standard drink = 0.6 oz pure alcohol) 5 beers daily Comments Unknown Sex and Gender Information Value Date Recorded Sex Assigned at Female 04/08/2024 1:10 PM CDT Legal Sex Female 10:26 PM CDT Gender Identity Female 04/08/2024 1:10 PM CDT Sexual Orientation Straight 04/08/2024 1: 10 PM CDT Occupation Industry Job Start Date Job End Date She works at the [employer] in the [employer] department Not on file Not on file Not on file documented as of this encounter Plan of Treatment Not on file documented as of this encounter Visit Diagnoses Not on filedocumented in this encounter Care Teams Miter Grinder Operator Relationship Specialty Start Date End Date Lindsey Hardy PA [address] [place] [address] PCP - General FAMILY PRACTICE 05/15/16 01/24/19 Lindsey Hardy PA [address] [place] [address] PCP - General 05/06/16 05/14/16 Judson Garcia MD PCP - General 11/03/13 05/05/16 Jessica Langford MD [address] [place] [address] PCP - General FAMILY PRACTICE 01/25/19 11/18/19 Mian Cordova MD [address] [facility] [address] [place] [address] PCP - General FAMILY PRACTICE 11/19/19 12/22/20 Boogie Nuñez DO [address] [facility] [address] [place] [address] PCP - General FAMILY PRACTICE 12/23/20 Carlitos Posey MD [address] [facility] [place], [place] [address] [place] [employer] Design Manager CARDIOVASCULAR DISEASE 05/15/16 documented as of this encounter
--- OUTSIDE RECORDS SUMMARY | 2024-12-23 07:14 | XMS_ITS | Clinical Summary ---
Author Organization [facility] Care Team Providers Care Mold Cutting Machine Operator Name Role Phone Unavailable Primary Care Provider Unavailabl e Social History Tobacco Use Types Packs/Day Years Used Date Smoking Tobacco: Never Assessed Comments Unknown Sex and Gender Information Value Date Recorded Sex Assigned at Not on file Legal Sex Female 9:26 AM LABEL SEWER Gender Identity Not on file Sexual Orientation Not on file Plan of Treatment Health Maintenance Due Date Last Done Comments Hepatitis C Virus (HCV) Screening 1965 TdaP Immunization 1965 Hepatitis B Immunization (1 of 3 - 19+ 3-dose series) 1984 Pap Smear 1986 Cervical Cancer Screening (CCS) 1995 HPV/Cotest 1995 Colonoscopy 2010 Colorectal Cancer Screening 2010 Cologuard 2015 Immunochemical Fecal Occult Blood 2015 Mammogram 2015 Pneumococcal Immunization (5 0+ years) (1 of 1 - PCV) 2015 Zoster Immunization (1 of 2) 2015 Influenza Immunization (#1) 2024 SARS-COV-2 Immunization ( season) 2024 Respiratory Syncytial Virus (RSV) Immunization (Adult) (1 - 1-dose 75+ series) 2040 Meningococcal Immunization (ACWY) Aged Out No longer eligible based on patient's age to complete this topic Pneumococcal Immunization Combined Aged Out No longer eligible based on patient's age to complete this topic Rotavirus Immunization Aged Out No lo nger eligible based on patient's age to complete this topic
[2024-12-23 07:15] VITALS: BP 151/84; PULSE 106; RESP 17; TEMP 36.4; O2SAT 97
--- NOTE | 2024-12-23 07:19 | ED.GENADULT ---
HPI - General Adult General Chief complaint: Fall Stated complaint: fall, hit head Time Seen by Provider: 12/23/24 07:14 History of Present Illness HPI narrative: 59-year-old female presented to the emergency department for evaluation after having a ground level fall. Patient states she slipped on the ice and rain and fell backwards striking the posterior skull. Patient denies any loss of consciousness. Patient states he did feel a little dazed after the fall but patient was able to get up and presented to the emergency department by private. Patient has no laceration and no hematoma. Patient is able to ambulate baseline. Patient is alert and oriented. Patient denies any other pain or complaint other than her ?neck feels wonky . Patient has no cervical spine tenderness and normal range of motion Related Data Home Medications ?Medication ?Instructions ?Recorded ?Confirmed ?Last Taken ?Type ascorbic acid (vitamin C) 1,000 mg 1 g PO DAILY 05/12/24 07/09/24 Unknown History capsule aspirin 81 mg tablet,delayed 81 mg PO BID 05/12/24 07/09/24 Unknown History release (Hunter Low Dose Aspirin) biotin 10,000 mcg chewable tablet mcg PO 05/12/24 07/09/24 Unknown History calcium 250 mg (as 1 tablet PO DAILY 05/12/24 07/09/24 Unknown History carbonate)-vitamin D3 3.125 mcg (125 unit) tablet lutein 40 mg capsule 40 mg PO DAILY 05/12/24 07/09/24 Unknown History melatonin 10 mg capsule 10 mg PO QHS 05/12/24 07/09/24 Unknown History multivitamin 1 tablet PO DAILY 05/12/24 07/09/24 Unknown History omega 4-ljt-sol-fish oil 1,000 mg 1 cap PO DAILY 05/12/24 07/09/24 Unknown History (120 mg-180 mg) capsule (Fish Oil) venlafaxine 150 mg 150 mg PO QAM 05/12/24 07/09/24 Unknown History capsule,extended release 24 hr (Effexor XR) venlafaxine 150 mg 150 mg PO QPM 05/12/24 07/09/24 Unknown History capsule,extended release 24 hr (Effexor XR) venlafaxine 75 mg capsule,extended 75 mg PO DAILY 05/12/24 07/09/24 Unknown History release 24 hr (Effexor XR) Allergies Allergy/AdvReac Type Severity Reaction Status Date / Time No Known Allergies Allergy Verified 12/23/24 07:19 Review of Systems Review of Systems: All systems reviewed & are unremarkable except as noted in HPI and below PMFSH Past Medical History Medical History Cardiomyopathy reports 13 years ago, related to EtOH abuse. Depression Surgical History Surgical History History of cholecystectomy Family History Family History Grandparent , lung cancer Lung cancer Social History Social History Social History: reports 1 pack every 2 days, has cut down significantly. Smoking packs per day: 0.25 Smoking cigarettes per day: 5.0 Years smoked: 40 Smoking pack-years: 10.00 Smoking status: Current every day smoker Tobacco type: cigarettes Alcohol intake: former Alcohol use details: previously 6 beers per day, quit 10 years ago Substance use: never Exam Narrative: APPEARANCE: Well appearing, no pain, no distress, well-nourished. HEAD: normocephalic, posterior scalp tender. EYES: PERRLA/EOMI, conjunctivae clear. NOSE: Normal no drainage EARS:TMS clear with good light reflex. THROAT: Pharynx clear, no exudate. NECK: Supple. No adenopathy, no masses. RESPIRATORY: Airway patent, respirations nonlabored. Clear to auscultation bilaterally, no rales, rhonchi, wheezing. CARDIOVASCULAR: Regular rate and rhythm without murmurs rubs or gallops. ABDOMINAL: Soft, nontender, nondistended, normal bowel sounds MUSCULOSKELETAL: Right lateral neck tenderness to palpation NEURO: Alert. Cranial nerves II through XII intact. Grossly intact SKIN: Warm, dry. Normal Color Course Vital Signs Vital signs: Vital Signs Temperature 97.6 F 12/23/24 07:15 Pulse Rate 106 H 12/23/24 07:15 Respiratory Rate 17 12/23/24 07:15 Blood Pressure 151/84 H 12/23/24 07:15 Pulse Oximetry 97 12/23/24 07:15 Oxygen Delivery Room Air 12/23/24 07:15 Temperature 97.6 F 12/23/24 07:15 Pulse Rate 106 H 12/23/24 07:15 Respiratory Rate 17 12/23/24 07:15 Blood Pressure 151/84 H 12/23/24 07:15 Pulse Oximetry 97 12/23/24 07:15 Oxygen Delivery Room Air 12/23/24 07:15 Medical Decision Making MDM Narrative Medical decision making narrative: 59-year-old female presenting to the emergency department for evaluation after having a mechanical fall and subsequent head injury. CT brain, CT cervical spine and x-ray elbow are negative for acute injury. Patient was updated the results of the workup. Patient was comfortable plan for discharge and close follow-up. All questions concerns were addressed. Differential Diagnosis Differential Diagnosis: Subdural hematoma, subarachnoid hemorrhage, cervical spine fracture, contusion, hematoma Vital Signs Vital Signs: Vital Signs Temperature 97.6 F 12/23/24 07:15 Pulse Rate 106 H 12/23/24 07:15 Respiratory Rate 17 12/23/24 07:15 Blood Pressure 151/84 H 12/23/24 07:15 Pulse Oximetry 97 12/23/24 07:15 Oxygen Delivery Room Air 12/23/24 07:15 Temperature 97.6 F 12/23/24 07:15 Pulse Rate 106 H 12/23/24 07:15 Respiratory Rate 17 12/23/24 07:15 Blood Pressure 151/84 H 12/23/24 07:15 Pulse Oximetry 97 12/23/24 07:15 Oxygen Delivery Room Air 12/23/24 07:15 Lab Data Labs: Impressions Elbow X-Ray 12/23/24 07:39 IMPRESSION: 1: NO ACUTE BONE OR JOINT ABNORMALITY IDENTIFIED. Head CT 12/23/24 07:41 IMPRESSION: 1. No acute intracranial abnormality. Cervical Spine CT 12/23/24 07:42 IMPRESSION: 1. No acute abnormality of the cervical spine. Imaging Data Radiologist's impression: Impressions Elbow X-Ray 12/23/24 07:39 IMPRESSION: 1: NO ACUTE BONE OR JOINT ABNORMALITY IDENTIFIED. Head CT 12/23/24 07:41 IMPRESSION: 1. No acute intracranial abnormality. Cervical Spine CT 12/23/24 07:42 IMPRESSION: 1. No acute abnormality of the cervical spine. Discharge Plan Discharge Clinical Impression: Head injury, Acute neck pain, Elbow pain Patient Disposition: Home, Self-Care Condition: Stable Instructions: Antibiotic Form, Head Injury (ED) Additional Instructions: Tylenol and ibuprofen for pain control. Have close follow-up with your primary care physician. If you have any worsening symptoms please call or return the emergency department. Patient Language: Portuguese Prescriptions: No Action venlafaxine [Effexor XR] 150 mg capsule,extended release 24hr 150 mg PO QAM venlafaxine [Effexor XR] 150 mg capsule,extended release 24hr 150 mg PO QPM venlafaxine [Effexor XR] 75 mg capsule,extended release 24hr 75 mg PO DAILY biotin 10,000 mcg tablet,chewable PO omega 2-ovm-lfk-fish oil [Fish Oil] 1,000 mg (120 mg-180 mg) capsule 1 cap PO DAILY lutein 40 mg capsule 40 mg PO DAILY Rx Instructions: administer with meals melatonin 10 mg capsule 10 mg PO QHS multivitamin Tablet 1 tablet PO DAILY ascorbic acid (vitamin C) 1,000 mg capsule 1 g PO DAILY calcium carbonate-vitamin D3 250 mg-3.125 mcg (125 unit) tablet 1 tablet PO DAILY aspirin [Hunter Low Dose Aspirin] 81 mg tablet,delayed release (DR/EC) 81 mg PO BID fluticasone propionate [Allergy Relief (fluticasone)] 50 mcg/actuation spray,suspension 1 spray intranasal DAILY Qty: 50 0RF Rx Instructions: administer into each nostril lidocaine 5 % ointment 1 applic topical QID PRN (Reason: pain) Qty: 50 1RF diclofenac sodium 3 % gel 1 applic topical BID PRN (Reason: pain (scale score 7-10)) Qty: 100 1RF levothyroxine 50 mcg tablet 50 mcg PO DAILY Qty: 90 0RF Follow-up/Referrals: UNKNOWN,DOCTOR [Primary Care Provider] -
--- OUTSIDE RECORDS SUMMARY | 2024-12-23 07:46 | XMS_ITS | Clinical Summary ---
Author Organization [facility] Address [address] [place] [address]. [place], [place] [address] [place] [id number] Care Team Providers Care Bottle Feeder Name Role Phone Carlitos Posey MD Unavailable Boogie Nuñez DO Primary Care Provider [phone] Allergies No known active allergies Medications venlafaxine 24 hr (EFFEXOR XR) 37.5 MG 24 hr capsule Take 75 mg by mouth daily. 05/02/2015 Active Columbia-3 Fatty Acids (FISH OIL) 1200 MG Cap [...] Job End Date She works at the [employer] in the [employer] department Not on file Not on file Not on file Last Filed Vital Signs Vital Sign Reading Time Taken Comments Blood Pressure 123/69 11/19/2019 9:17 AM PERSONAL INJURY LAW SPECIALIST Pulse 86 11/19/2019 9:17 AM PERSONAL INJURY LAW SPECIALIST Temperature 36.2 ??C (97.1 ??F) 11/19/2019 9:17 AM CS T Respiratory Rate 20 11/19/2019 9:17 AM PERSONAL INJURY LAW SPECIALIST Oxygen Saturation 96% 11/19/2019 9:18 AM PERSONAL INJURY LAW SPECIALIST Inhaled Oxygen Concentration - - Weight 88.5 kg (195 lb) 11/19/2019 9:17 AM PERSONAL INJURY LAW SPECIALIST Height 154.9 cm (5' 1 ) 11/19/2019 9:17 AM PERSONAL INJURY LAW SPECIALIST Body Mass Index 36.84 11/19/2019 9:17 AM PERSONAL INJURY LAW SPECIALIST Plan of Treatment Health Maintenance Due Date [...] this topic Meningococcal Vaccine Aged Out No sandie casey eligible based on patient's age to complete this topic RSV Immunizations Under 20 Months Aged Out No longer eligible b ased on patient's age to complete this topic Insurance MEDICAID [facility]ETNA [facility] Care Teams Bottle Feeder Relationship Specialty Start Date End Date Boogie Nuñez DO [address] [place], [place] [address] PCP - General FAMILY PRACTICE 12/23/20 Carlitos Posey MD [address] [place], [place] [id number] [place] Hardware Sales Assistant CARDIOVASCULAR DISEASE 05/15/16
--- OUTSIDE RECORDS SUMMARY | 2024-12-23 07:47 | XMS_ITS | Patient Health Summary ---
Author Organization [facility] [employer] Address [address] [place] [address] Care Team Providers Care Machine Quilt Stuffer Name Role Phone Charlie Albert MD Primary Care Provider [phone] Note from [facility],non-owned Affiliates and Associated Physician Practices is amultiple site organization consisting of ambulatory clinics and hospital sitesin [place], [place], [place] and [place]. This disclosure is being madepursuant to the Care Everywhere program and may not contain all information available regarding this patient. Last updated 18.[facility] [employer] Allergies No known active allergies Immunizations * [...] - POINT OF CARE (12/02/2019 9:30 AM INHALATION THERAPY TEACHER) PPD 0mm-negative ; placed 12/02 at 0930; read 12/04 at 0930 Other MISCELLANEOUS SAMPLE S / Unknown 12/02/2019 9:30 AM INHALATION THERAPY TEACHER Ellie Arguello CLAIMS SERVICE REPRESENTATIVE-CALIBRATION LABORATORY TECHNICIAN LAB - POINT OF CARE ORDERABLES Care Teams Machine Quilt Stuffer Relationship Specialty Start Date [place] Charlie [place] [id number] [place] [address] PCP - General 10/16/09
--- OUTSIDE RECORDS SUMMARY | 2024-12-23 07:47 | XMS_ITS | Clinical Summary ---
Author Organization [facility] Care Team Providers Care Offset Printing Pressmen Name Role Phone Unavailable Primary Care Provider Unavailabl e Social History Tobacco Use Types Packs/Day Years Used Date Smoking Tobacco: Never Assessed Comments Unknown Sex and Gender Information Value Date Recorded Sex Assigned at Not on file Legal Sex Female 9:26 AM GREEN FEED ATTENDANT Gender Identity Not on file Sexual Orientation [...]
--- OUTSIDE RECORDS SUMMARY | 2024-12-23 07:47 | XMS_ITS | Clinical Summary ---
Author Organization [facility] [employer] Address [address] [place] [address] Care Team Providers Care Field Administrator Name Role Phone Charlie Albert MD Primary Care Provider [phone] Source Comments [facility] [employer],non-owned Affiliates and Associated Physician Practices is amultiple site organization consisting of ambulatory clinics and hospital sitesin [place], [place] and [place]. This disclosure is being madepursuant to the Care Everywhere program and may not contain all information available regarding this patient. Last updated 18.[facility] [employer] Allergies No known active allergies Immunizations Name [...] age to complete this topic Care Teams Field Administrator Relationship Specialty Start Date [place] Date Charlie Albert [place] [id number] [place] [address] PCP - General 10/16/09
--- OUTSIDE RECORDS SUMMARY | 2024-12-23 07:47 | XMS_ITS | Referral Summary ---
Author Organization [facility] Address [address] [place] [address] Care Team Providers Care Muskrat Trapper Name Role Phone Charlie Albert MD Primary Care Provider [phone] Source Comments [facility],non-owned Affiliates and Associated Physician Practices is amultiple site organization consisting of ambulatory clinics and hospital sitesin [place], [place], [place] and [place]. This disclosure is being madepursuant to the Care Everywhere program and may not contain all information available regarding this patient. Last updated 18.[facility] Allergies No known active allergies Immunizations Name Administration Dates Next Due TDAP (7yrs+) 12/02/2019 Social History Tobacco Use Types Packs/Day Years Used Date Smoking Tobacco: Never Assessed Sex and Gender Information Value Date Recorded Sex Assigned at Not on file Gender Identity Not on file Sexual Orientation Not on file Plan of Treatment Not on file Administered Medications Care Teams Muskrat Trapper Relationship Specialty Start Date [place] Charlie Albert [place] [id number] [place] [address] PCP - General 10/16/09
--- OUTSIDE RECORDS SUMMARY | 2024-12-23 07:47 | XMS_ITS | Encounter Summary ---
Author Organization [facility] Address [address] [place] [address]. [place], [place] [address] [place] [address] Care Team Providers Care C Python Developer Name Role Phone Lindsey Hardy Primary Care Provider [phone] Carlitos Posey MD Unavailable Lindsey Hardy Primary Care Provider [phone] Judson Garcia MD Primary Care Provider Unavailable Jessica Langford MD Primary Care Provider [phone] Mian Cordova MD Primary Care Provider [phone] Boogie Nuñez DO Primary Care Provider [phone] Encounter Details Date Type Department Care Team (Late st Contact Info) Description 05/02/2015 Abstract [facility] AT [address] [address] Gia Rojo, ANP-BC [address] [id number] Social History Tobacco Use Types Packs/Day Years [...] Job End Date She works at the [employer] in the [employer] department Not on file Not on file Not on file documented as of this encounter Plan of Treatment Not on file documented as of this encounter Visit Diagnoses Not on filedocumented in this encounter Care Teams C Python Developer Relationship Specialty Start Date End Date Lindsey Hardy PA [address] [place] [address] PCP - General FAMILY PRACTICE 05/15/16 01/24/19 Lindsey Hardy PA [address] [place] [address] PCP - General 05/06/16 05/14/16 Judson Garcia MD PCP - General 11/03/13 05/05/16 Jessica Langford MD [address] [place] [address] PCP - General FAMILY PRACTICE 01/25/19 11/18/19 Mian Cordova MD [address] [facility] [address] [place] [address] PCP - General FAMILY PRACTICE 11/19/19 12/22/20 Boogie Nuñez DO [address] [facility] [address] [place] [address] PCP - General FAMILY PRACTICE 12/23/20 Carlitos Posey MD [address] [facility] [place], [place] [address] [place] Valet Attendant CARDIOVASCULAR DISEASE 05/15/16 documented as of this encounter
== END 2024-12-23 08:05 | disposition home or self-care (01) ==
PROVIDERS: Emergency Provider Emergency Medicine
DX: S09.90XA Unspecified injury of head, initial encounter (principal); S19.9XXA Unspecified injury of neck, initial encounter; M25.521 Pain in right elbow; F17.210 Nicotine dependence, cigarettes, uncomplicated; Z90.49 Acquired absence of other specified parts of digestive tract; W00.0XXA Fall on same level due to ice and snow, initial encounter
CPT/HCPCS: 70450; 72125; 73080; 99284